=== PATIENT | female | born 1975 | race Caucasian/White ===

== ENCOUNTER → 2018-04-13 | Outpatient (CLI) | payer BC ==
[2018-04-13 07:39] LABS: Basophils # (auto) 0 uL; Basophils % (auto) 0.6 % (0.0-2.0); Eosinophils # (auto) 0.1 uL; Eosinophils % (auto) 1.9 % (0.0-7.0); Hematocrit 45.9 % (36.0-46.0); Hemoglobin 16.1 g/dL (12.2-16.2); Lymphocytes # (auto) 2.2 uL; Lymphocytes % (auto) 32.6 % (10.0-50.0); Mean Corpuscular Hemoglobin 29.3 pg (28.0-32.0); Mean Corpuscular Hgb Conc. 35.1 g/dL (32.0-36.0); Mean Corpuscular Volume 83.5 fL (80.0-100.0); Monocytes # (auto) 0.5 uL; Monocytes % (auto) 6.8 % (0.0-12.0); Neutrophils % (auto) 58.1 % (37.0-80.0); Nucleated Red Blood Cells % 0.3 %; Platelet Count (auto) 213 10^3/uL (140-450); Red Cell Distribution Width 13.3 % (11.8-14.3); White Blood Cell 6.9 10^3/uL (4.4-10.8)
[2018-04-13 07:57] LABS: Albumin 4.3 g/dL (3.4-5.0); BUN/Creatinine Ratio 11.4; Potassium 3.5 mmol/L (3.5-5.1)
[2018-04-13 08:03] LABS: Bilirubin, Total 1.4 mg/dL (0.2-1.0)
[2018-04-14 06:06] LABS: RPR Non Reactive (Non Reactive)
== END | disposition home or self-care (01) ==
LOC: LAB 07:12
PROVIDERS: ATTEND Physician Assistant
DX: Z20.2 Contact with and (suspected) exposure to infections with a predominantly sexual mode of transmission (principal); I12.9 Hypertensive chronic kidney disease with stage 1 through stage 4 chronic kidney disease, or unspecified chronic kidney disease; N18.3 Chronic kidney disease, stage 3 (moderate); E78.5 Hyperlipidemia, unspecified
CPT/HCPCS: 36415; 80053; 80061; 80074; 85025; 86592; 86703

== ENCOUNTER → 2019-12-21 | Outpatient (CLI) | payer OTHER | END | disposition home or self-care (01) | LOC: LAB 14:49 | PROVIDERS: ATTEND Nurse Practitioner Family | DX: Z20.828 Contact with and (suspected) exposure to other viral communicable diseases (principal) | CPT/HCPCS: C9803; U0003 ==

== ENCOUNTER → 2020-03-01 | Outpatient (CLI) | payer OTHER | END | disposition home or self-care (01) | LOC: LAB 09:11 | PROVIDERS: ATTEND Nurse Practitioner Family | DX: Z20.828 Contact with and (suspected) exposure to other viral communicable diseases (principal) | CPT/HCPCS: C9803; U0003 ==

== ENCOUNTER → 2020-04-23 | Outpatient (CLI) | payer BC, MEDICAID ==
[2020-04-23 09:30] LABS: Basophils # (auto) 0 10 ^3/uL (0-0.2); Basophils % (auto) 0.5 % (0.0-2.0); Eosinophils # (auto) 0.1 10 ^3/uL (0-0.8); Hematocrit 42.7 % (36.0-46.0); Hemoglobin 15.2 g/dL (12.2-16.2); Lymphocytes # (auto) 2.1 10 ^3/uL (0.4-5.4); Lymphocytes % (auto) 37.3 % (10.0-50.0); Mean Corpuscular Hemoglobin 29.8 pg (28.0-32.0); Mean Corpuscular Hgb Conc. 35.6 g/dL (32.0-36.0); Mean Corpuscular Volume 83.7 fL (80.0-100.0); Monocytes # (auto) 0.3 10 ^3/uL (0-1.3); Monocytes % (auto) 5.8 % (0.0-12.0); Neutrophils % (auto) 54.4 % (37.0-80.0); Nucleated Red Blood Cells % 0.2 %; Platelet Count (auto) 175 10^3/uL (140-450); White Blood Cell 5.6 10^3/uL (4.4-10.8)
[2020-04-23 10:17] LABS: Potassium 4.3 mmol/L (3.5-5.1)
[2020-04-23 10:32] LABS: Albumin 3.7 g/dL (3.4-5.0); BUN/Creatinine Ratio 18.8; Bilirubin, Total 0.5 mg/dL (0.2-1.0); Calcium 8.7 mg/dL (8.5-10.1); Total Protein 7.4 g/dL (6.4-8.2)
== END | disposition home or self-care (01) ==
LOC: LAB 08:58
PROVIDERS: ATTEND Physician Assistant
DX: I13.10 Hypertensive heart and chronic kidney disease without heart failure, with stage 1 through stage 4 chronic kidney disease, or unspecified chronic kidney disease (principal); N18.30 Chronic kidney disease, stage 3 unspecified; E78.5 Hyperlipidemia, unspecified; K58.9 Irritable bowel syndrome, unspecified
CPT/HCPCS: 36415; 80053; 80061; 85025

== ENCOUNTER 2020-12-21 12:03 | Day surgery (SDC) | payer BC, MEDICAID ==
[2020-12-18 15:21] LABS: Basophils # (auto) 0.1 10 ^3/uL (0-0.2); Basophils % (auto) 0.7 % (0.0-2.0); Eosinophils # (auto) 0.1 10 ^3/uL (0-0.8); Eosinophils % (auto) 1.6 % (0.0-7.0); Hematocrit 45.2 % (36.0-46.0); Hemoglobin 15.5 g/dL (12.2-16.2); Lymphocytes % (auto) 40.8 % (10.0-50.0); Mean Corpuscular Hemoglobin 28.4 pg (28.0-32.0); Mean Corpuscular Hgb Conc. 34.2 g/dL (32.0-36.0); Monocytes # (auto) 0.3 10 ^3/uL (0-1.3); Monocytes % (auto) 4.5 % (0.0-12.0); Neutrophils # (auto) 3.9 10 ^3/uL (1.6-8.6); Neutrophils % (auto) 52.4 % (37.0-80.0); Nucleated Red Blood Cells % 0.4 %; Red Blood Cells 5.45 10^6/uL (4.0-5.20); Red Cell Distribution Width 12.8 % (11.8-14.3); White Blood Cell 7.4 10^3/uL (4.4-10.8)
[2020-12-18 15:55] LABS: Albumin 4.1 g/dL (3.4-5.0); Calcium 8.9 mg/dL (8.5-10.1); Potassium 3.7 mmol/L (3.5-5.1)
[2020-12-18 16:00] LABS: BUN/Creatinine Ratio 12.8; Bilirubin, Total 0.8 mg/dL (0.2-1.0); Total Protein 7.4 g/dL (6.4-8.2)
[~2020-12-21] VITALS: Ht 167.6 cm; Wt 88.0 kg
[2020-12-21] MEDS: diphenhdrAMINE HCL 50 MG/1 ML VL ONE ×2 (14:25→14:28)
[2020-12-21] MEDS: fentaNYL CITRATE 100 MCG/2 ML VL ONE ×6 (14:25→14:41)
[2020-12-21] MEDS: MIDAZOLAM HCL 5 MG/ML-1ML VIAL ONE ×5 (14:25→14:41)
[2020-12-21 15:20] VITALS: BP 162/91
[2020-12-21] MEDS ORDERED: ONDANSETRON HCL 4 MG/2 ML VIAL ONE (15:28)
[2020-12-21] MEDS ORDERED: ONDANSETRON HCL 4 MG/2 ML VIAL IV ONE (15:30)
== END 2020-12-21 15:50 | disposition home or self-care (01) ==
LOC: GI 12:03
PROVIDERS: ATTEND Internal Medicine Gastroenterology
DX: R19.4 Change in bowel habit (principal); K63.5 Polyp of colon; K57.30 Diverticulosis of large intestine without perforation or abscess without bleeding; K63.89 Other specified diseases of intestine; I10 Essential (primary) hypertension; F41.9 Anxiety disorder, unspecified; Z98.51 Tubal ligation status; Z98.890 Other specified postprocedural states; Z79.899 Other long term (current) drug therapy; Z88.1 Allergy status to other antibiotic agents; Z88.2 Allergy status to sulfonamides; Z20.822 Contact with and (suspected) exposure to COVID-19; Z90.710 Acquired absence of both cervix and uterus
CPT/HCPCS: 36415; 45380; 80053; 85025; 88305; J1200; J2250; J2405; J3010; J7030; U0003; 99152

== ENCOUNTER → 2021-03-20 | Outpatient (CLI) | payer BC, MEDICAID ==
[2021-03-20 09:26] LABS: Basophils # (auto) 0 10 ^3/uL (0-0.2); Basophils % (auto) 0.8 % (0.0-2.0); Eosinophils # (auto) 0.1 10 ^3/uL (0-0.8); Eosinophils % (auto) 2.1 % (0.0-7.0); Hematocrit 43.3 % (36.0-46.0); Hemoglobin 15.1 g/dL (12.2-16.2); Lymphocytes % (auto) 32.9 % (10.0-50.0); Mean Corpuscular Hemoglobin 28.9 pg (28.0-32.0); Mean Corpuscular Hgb Conc. 34.9 g/dL (32.0-36.0); Mean Corpuscular Volume 82.8 fL (80.0-100.0); Monocytes # (auto) 0.3 10 ^3/uL (0-1.3); Monocytes % (auto) 5.1 % (0.0-12.0); Neutrophils # (auto) 3.6 10 ^3/uL (1.6-8.6); Neutrophils % (auto) 59.1 % (37.0-80.0); Nucleated Red Blood Cells % 0.1 %; Red Blood Cells 5.23 10^6/uL (4.0-5.20); Red Cell Distribution Width 13.2 % (11.8-14.3)
[2021-03-20 10:01] LABS: Albumin 4.1 g/dL (3.4-5.0); Calcium 9.1 mg/dL (8.5-10.1); Potassium 4.7 mmol/L (3.5-5.1)
[2021-03-20 10:08] LABS: BUN/Creatinine Ratio 16.7; Bilirubin, Total 0.6 mg/dL (0.2-1.0); Total Protein 7.2 g/dL (6.4-8.2)
== END | disposition home or self-care (01) ==
LOC: LAB 09:01
PROVIDERS: ATTEND Nurse Practitioner Family
DX: K58.0 Irritable bowel syndrome with diarrhea (principal); E78.1 Pure hyperglyceridemia; E66.9 Obesity, unspecified; I10 Essential (primary) hypertension; F41.8 Other specified anxiety disorders
CPT/HCPCS: 36415; 80053; 80061; 83036; 84443; 85025

== ENCOUNTER → 2021-04-08 | Outpatient (CLI) | payer BC, MEDICAID | END | disposition home or self-care (01) | LOC: XY 10:41 | PROVIDERS: ATTEND Internal Medicine | DX: I07.1 Rheumatic tricuspid insufficiency (principal); I05.0 Rheumatic mitral stenosis; I35.0 Nonrheumatic aortic (valve) stenosis; I27.20 Pulmonary hypertension, unspecified | CPT/HCPCS: 93306 ==

== ENCOUNTER → 2021-04-09 | Outpatient (CLI) | payer BC, MEDICAID ==
[~2021-04-09] VITALS: Ht 167.6 cm; Wt 90.7 kg
[~2021-04-09] MED LIST: ADENOSINE 76 MG in GIVE UN-DILUTED 0 ML IV STA
[2021-04-09 08:31] VITALS: BP 142/79
== END | disposition home or self-care (01) ==
LOC: XYW 07:54
PROVIDERS: ATTEND Internal Medicine
DX: F17.210 Nicotine dependence, cigarettes, uncomplicated (principal); R07.9 Chest pain, unspecified; I10 Essential (primary) hypertension; Z82.49 Family history of ischemic heart disease and other diseases of the circulatory system
CPT/HCPCS: 78452; 93017; A9500; J0153

== ENCOUNTER 2021-06-26 08:23 | Day surgery (SDC) | payer BC, MEDICAID ==
[2021-06-25 10:11] LABS: Basophils # (auto) 0.1 10 ^3/uL (0-0.2); Basophils % (auto) 0.8 % (0.0-2.0); Eosinophils # (auto) 0.1 10 ^3/uL (0-0.8); Eosinophils % (auto) 1.5 % (0.0-7.0); Hematocrit 40.4 % (36.0-46.0); Hemoglobin 14.4 g/dL (12.2-16.2); Lymphocytes # (auto) 2.3 10 ^3/uL (0.4-5.4); Lymphocytes % (auto) 34.2 % (10.0-50.0); Mean Corpuscular Hemoglobin 29.3 pg (28.0-32.0); Mean Corpuscular Hgb Conc. 35.7 g/dL (32.0-36.0); Mean Corpuscular Volume 82.2 fL (80.0-100.0); Monocytes # (auto) 0.2 10 ^3/uL (0-1.3); Monocytes % (auto) 3.4 % (0.0-12.0); Neutrophils # (auto) 4.1 10 ^3/uL (1.6-8.6); Neutrophils % (auto) 60.1 % (37.0-80.0); Nucleated Red Blood Cells % 0.3 %; Red Blood Cells 4.92 10^6/uL (4.0-5.20); Red Cell Distribution Width 12.8 % (11.8-14.3); White Blood Cell 6.9 10^3/uL (4.4-10.8)
[2021-06-25 10:30] LABS: INR 0.99 (0.9-1.15); Partial Thromboplastin Time 29.4 sec (23.6-33.0)
[2021-06-25 10:36] LABS: Potassium 4.4 mmol/L (3.5-5.1)
[2021-06-25 10:55] LABS: Albumin 3.9 g/dL (3.4-5.0); BUN/Creatinine Ratio 14.6; Bilirubin, Total 0.7 mg/dL (0.2-1.0); Calcium 8.7 mg/dL (8.5-10.1); Total Protein 7.4 g/dL (6.4-8.2)
[~2021-06-26] VITALS: Ht 167.6 cm; Wt 92.5 kg
[2021-06-26] MEDS ORDERED: LIDOCAINE 2%HCL (LOCAL ANESTH.) INJ 10ml MDV ONE (10:13)
[2021-06-26] MEDS ORDERED: IOHEXOL 350 MG/ML 100ML IJ ONE (10:13)
[2021-06-26] MEDS ORDERED: ANGIOMAX 250 MG VIAL IV ONE (10:17)
[2021-06-26] MEDS ORDERED: fentaNYL CITRATE 100 MCG/2 ML VL ONE (10:17)
[2021-06-26] MEDS ORDERED: MIDAZOLAM HCL 2MG/2ML 2ml VIAL (1mg/ml) ONE ×2 (10:17→10:58)
[2021-06-26] MEDS ORDERED: SODIUM CHL 0.9% 0 ML ONE (10:17)
== END 2021-06-26 13:43 | disposition home or self-care (01) ==
LOC: CATH 08:23
PROVIDERS: ATTEND Internal Medicine
DX: I27.20 Pulmonary hypertension, unspecified (principal); R06.02 Shortness of breath; J44.9 Chronic obstructive pulmonary disease, unspecified; I10 Essential (primary) hypertension; F17.210 Nicotine dependence, cigarettes, uncomplicated; Z88.5 Allergy status to narcotic agent; Z88.2 Allergy status to sulfonamides; Z88.8 Allergy status to other drugs, medicaments and biological substances; Z20.822 Contact with and (suspected) exposure to COVID-19
CPT/HCPCS: 36415; 80053; 85025; 85610; 85730; 93460; C1751; C1760; C1894; J1644; J2001; J2250; J3010; J7030; Q9967; U0003; 99152; 99153

== ENCOUNTER → 2022-01-17 | Outpatient (CLI) | payer BC, MEDICAID ==
[2022-01-17 09:09] LABS: Urine Bacteria FEW /hpf (None Seen); Urine Blood Negative /uL (Negative); Urine Specific Gravity 1.016 (1.001-1.035); Urine WBC 1 /hpf (0 - 5)
== END | disposition home or self-care (01) ==
LOC: LAB 08:08
PROVIDERS: ATTEND Urology
DX: N39.0 Urinary tract infection, site not specified (principal)
CPT/HCPCS: 81001; 87086

== ENCOUNTER 2022-04-08 11:15 | Emergency (ER) | payer BC, MEDICAID ==
[~2022-04-08] VITALS: Ht 165.1 cm; Wt 97.7 kg
[2022-04-08] MEDS ORDERED: GLUCAGON HYDROCHLORIDE (RDNA) 1 MG VIAL IM ONE (13:00)
[2022-04-08 16:05] LABS: Basophils # (auto) 0.1 10 ^3/uL (0-0.2); Basophils % (auto) 0.5 % (0.0-2.0); Eosinophils # (auto) 0.1 10 ^3/uL (0-0.8); Hematocrit 45.2 % (36.0-46.0); Hemoglobin 15.1 g/dL (12.2-16.2); Lymphocytes # (auto) 2.6 10 ^3/uL (0.4-5.4); Lymphocytes % (auto) 22.2 % (10.0-50.0); Mean Corpuscular Hemoglobin 28.3 pg (28.0-32.0); Mean Corpuscular Hgb Conc. 33.5 g/dL (32.0-36.0); Mean Corpuscular Volume 84.4 fL (80.0-100.0); Monocytes # (auto) 0.5 10 ^3/uL (0-1.3); Monocytes % (auto) 4.4 % (0.0-12.0); Neutrophils # (auto) 8.6 10 ^3/uL (1.6-8.6); Neutrophils % (auto) 71.9 % (37.0-80.0); Nucleated Red Blood Cells % 0.2 %; Red Blood Cells 5.36 10^6/uL (4.0-5.20); Red Cell Distribution Width 13.3 % (11.8-14.3)
[2022-04-08 16:24] LABS: Albumin 4.1 g/dL (3.4-5.0); Calcium 8.8 mg/dL (8.5-10.1); Potassium 3.4 mmol/L (3.5-5.1)
[2022-04-08 16:29] LABS: BUN/Creatinine Ratio 9.8; Bilirubin, Total 1.4 mg/dL (0.2-1.0); Total Protein 7.5 g/dL (6.4-8.2)
[2022-04-08] MEDS ORDERED: IOHEXOL 300 MG/ML 100ML BOTTLE IJ ONE (16:47)
[2022-04-08] MEDS ORDERED: MAALOX PLUS or MAALOX 30 ML PO ONE (17:00)
[2022-04-08] MEDS ORDERED: LIDOCAINE VISCOUS 2% 15ML UD PO ONE (17:00)
[2022-04-08] MEDS ORDERED: FAMOTIDINE (10MG/ML) 2ML VL IV ONE (17:00)
[2022-04-08] MEDS ORDERED: ONDANSETRON HCL 4 MG/2 ML VIAL IV ONE (17:00)
[2022-04-08 21:59] VITALS: BP 138/100
== END 2022-04-08 22:00 | disposition home or self-care (01) ==
LOC: ER 11:15
DX: T18.128A Food in esophagus causing other injury, initial encounter (principal); X58.XXXA Exposure to other specified factors, initial encounter; Y93.9 Activity, unspecified; Y92.89 Other specified places as the place of occurrence of the external cause; Y99.8 Other external cause status
CPT/HCPCS: 36415; 70491; 71260; 80053; 85025; 96372; 96374; 96375; 99285; J1610; J2405; J3490; Q9967

== ENCOUNTER → 2022-09-29 | Outpatient (CLI) | payer BC, MEDICAID ==
[2022-09-29 07:15] LABS: Basophils # (auto) 0.1 10 ^3/uL (0-0.2); Basophils % (auto) 0.9 % (0.0-2.0); Eosinophils # (auto) 0.1 10 ^3/uL (0-0.8); Eosinophils % (auto) 1.8 % (0.0-7.0); Hematocrit 43.8 % (36.0-46.0); Hemoglobin 15.2 g/dL (12.2-16.2); Lymphocytes # (auto) 2.5 10 ^3/uL (0.4-5.4); Lymphocytes % (auto) 35.1 % (10.0-50.0); Mean Corpuscular Hemoglobin 28.8 pg (28.0-32.0); Mean Corpuscular Hgb Conc. 34.6 g/dL (32.0-36.0); Mean Corpuscular Volume 83.3 fL (80.0-100.0); Monocytes # (auto) 0.4 10 ^3/uL (0-1.3); Monocytes % (auto) 5.5 % (0.0-12.0); Neutrophils % (auto) 56.7 % (37.0-80.0); Nucleated Red Blood Cells % 0.5 %; Red Blood Cells 5.26 10^6/uL (4.0-5.20); Red Cell Distribution Width 12.9 % (11.8-14.3); White Blood Cell 7.1 10^3/uL (4.4-10.8)
[2022-09-29 07:57] LABS: Alanine Aminotransferase 37 U/L (13-56); Albumin 3.7 g/dL (3.4-5.0); Anion Gap 2 (5-15); Aspartate Aminotransferase 14 U/L (15-37); Blood Urea Nitrogen 16 mg/dL (7-18); Calcium 8.7 mg/dL (8.5-10.1); Carbon Dioxide 28 mmol/L (21-32); Chloride 111 mmol/L (98-107); Glucose 105 mg/dL (74-106); Potassium 4.3 mmol/L (3.5-5.1); Sodium 141 mmol/L (136-145)
[2022-09-29 08:03] LABS: Alkaline Phosphatase 91 U/L (45-117); BUN/Creatinine Ratio 15.2 (10.0-20.0); Bilirubin, Total 0.5 mg/dL (0.2-1.0); Cholesterol 166 mg/dL (< 200); GFR African American 72 mL/min; GFR Non-African American 60 mL/min; HDL Cholesterol 26 mg/dL (40-59); Total Protein 7.3 g/dL (6.4-8.2); Triglycerides 444 mg/dL (< 150)
== END | disposition home or self-care (01) ==
LOC: LAB 07:02
PROVIDERS: ATTEND Nurse Practitioner Family
DX: Z00.01 Encounter for general adult medical examination with abnormal findings (principal); E03.9 Hypothyroidism, unspecified; E78.5 Hyperlipidemia, unspecified; E66.01 Morbid (severe) obesity due to excess calories
CPT/HCPCS: 36415; 80053; 80061; 82306; 84439; 84443; 85025; 86038; 86431

== ENCOUNTER 2023-01-14 11:35 | Emergency (ER) | payer BC, MEDICAID ==
[~2023-01-14] VITALS: Ht 167.6 cm; Wt 99.0 kg
[2023-01-14] MEDS ORDERED: cloNIDine HCL 0.1 MG TAB PO ONE (12:30)
[2023-01-14 13:45] LABS: Basophils # (auto) 0 10 ^3/uL (0-0.2); Basophils % (auto) 0.4 % (0.0-2.0); Eosinophils # (auto) 0.1 10 ^3/uL (0-0.8); Eosinophils % (auto) 2.3 % (0.0-7.0); Hematocrit 43.2 % (36.0-46.0); Hemoglobin 14.7 g/dL (12.2-16.2); Lymphocytes # (auto) 2.5 10 ^3/uL (0.4-5.4); Lymphocytes % (auto) 39.4 % (10.0-50.0); Mean Corpuscular Hemoglobin 28.5 pg (28.0-32.0); Mean Corpuscular Hgb Conc. 34.1 g/dL (32.0-36.0); Mean Corpuscular Volume 83.7 fL (80.0-100.0); Monocytes # (auto) 0.3 10 ^3/uL (0-1.3); Monocytes % (auto) 5.5 % (0.0-12.0); Neutrophils # (auto) 3.3 10 ^3/uL (1.6-8.6); Neutrophils % (auto) 52.4 % (37.0-80.0); Nucleated Red Blood Cells % 0.1 %; Red Blood Cells 5.17 10^6/uL (4.0-5.20); Red Cell Distribution Width 13.3 % (11.8-14.3); White Blood Cell 6.3 10^3/uL (4.4-10.8)
[2023-01-14 14:08] LABS: Alanine Aminotransferase 52 U/L (7-40); Albumin 4.7 g/dL (3.2-4.8); Alkaline Phosphatase 72 U/L (46-116); Anion Gap 6 (5-15); Aspartate Aminotransferase 33 U/L (13-40); BUN/Creatinine Ratio 17.2 (10.0-20.0); Blood Urea Nitrogen 17 mg/dL (9-23); Calcium 9.3 mg/dL (8.5-10.1); Carbon Dioxide 31 mmol/L (20-30); Chloride 103 mmol/L (98-107); Glucose 90 mg/dL (74-106); Sodium 140 mmol/L (136-145); Total Protein 6.9 g/dL (5.7-8.2)
[2023-01-14] MEDS ORDERED: DexAMETHasone SOD PHOS 10MG/1ML VIAL INJ IV ONE ×2 (16:15→20:15)
[2023-01-14] MEDS ORDERED: KETOROLAC TROMETH 60MG/2ML VIAL IV ONE (16:15)
[2023-01-14] MEDS ORDERED: HYDROcodone-ACET 5/325MG TAB PO ONE (16:15)
[2023-01-14 16:54] LABS: Urine Bacteria FEW /hpf (None Seen); Urine Blood Negative /uL (Negative); Urine Clarity Clear (Clear); Urine Color Colorless (Yellow); Urine Protein, UAD Negative (Negative); Urine Specific Gravity 1.015 (1.001-1.035); Urine Urobilinogen Normal (Negative); Urine WBC 2 /hpf (0 - 5)
[2023-01-14 16:57] LABS: Amphetamine Screen, Urine Neg (NEGATIVE); Barbiturate Scree,Urine Neg (NEGATIVE); Benzodiazephine Screen, Urine Neg (NEGATIVE); Cocaine Screen, Urine Neg (NEGATIVE); Opiate Scree,Urine Neg (NEGATIVE); Phencyclidine Screen, Urine Neg (NEGATIVE)
[2023-01-14 16:58] LABS: Cannabinoid Screen, Urine Pos (NEGATIVE)
[2023-01-14] MEDS ORDERED: PRED20TA2 PO ×3 (17:35→20:46)
[2023-01-14] MEDS: LABETALOL HCL 5 MG/ML 4ML SYRINGE IV ONE ×2 (18:02→19:53)
[2023-01-14 19:30] VITALS: PULSE 81; RESP 12; TEMP 98.4; O2SAT 97
[2023-01-14] MEDS ORDERED: KETOROLAC TROMETH 30 MG/ML 1ML VIAL IV ONE (20:15)
[2023-01-14 21:49] VITALS: BP 154/81; PULSE 73; RESP 14; O2SAT 97
== END 2023-01-14 22:00 | disposition home or self-care (01) ==
LOC: ER 11:35
DX: M54.12 Radiculopathy, cervical region (principal); M47.9 Spondylosis, unspecified; I10 Essential (primary) hypertension
CPT/HCPCS: 36415; 70450; 72125; 80053; 80307; 81001; 83605; 84484; 85025; 93005; 96374; 96375; 99285; J1100; J1885; J3490

== ENCOUNTER → 2023-01-14 | Outpatient (CLI) | payer BC, MEDICAID ==
[~2023-01-14] MED LIST changes: -ADENOSINE 76 MG in GIVE UN-DILUTED 0 ML IV STA; +PRED20TA2 PO
== END | disposition home or self-care (01) ==
LOC: LAB 10:08
DX: E03.9 Hypothyroidism, unspecified (principal)
CPT/HCPCS: 36415; 84439; 84443

== ENCOUNTER → 2023-12-01 | Outpatient (CLI) | payer BC ==
[2023-12-01 08:07] LABS: Basophils # (auto) 0 10 ^3/uL (0-0.2); Basophils % (auto) 0.4 % (0.0-2.0); Eosinophils # (auto) 0.2 10 ^3/uL (0-0.8); Eosinophils % (auto) 2.4 % (0.0-7.0); Hematocrit 42.6 % (36.0-46.0); Hemoglobin 14.9 g/dL (12.2-16.2); Lymphocytes # (auto) 2.4 10 ^3/uL (0.4-5.4); Lymphocytes % (auto) 37.6 % (10.0-50.0); Mean Corpuscular Hemoglobin 29.4 pg (28.0-32.0); Mean Corpuscular Hgb Conc. 34.9 g/dL (32.0-36.0); Mean Corpuscular Volume 84.4 fL (80.0-100.0); Monocytes # (auto) 0.4 10 ^3/uL (0-1.3); Neutrophils # (auto) 3.5 10 ^3/uL (1.6-8.6); Neutrophils % (auto) 53.6 % (37.0-80.0); Nucleated Red Blood Cells % 0.1 %; Platelet Count (auto) 241 10^3/uL (140-450); Red Blood Cells 5.05 10^6/uL (4.0-5.20); Red Cell Distribution Width 12.8 % (11.8-14.3); White Blood Cell 6.5 10^3/uL (4.4-10.8)
[2023-12-01 09:28] LABS: Alanine Aminotransferase 54 U/L (7-40); Albumin 4.9 g/dL (3.2-4.8); Alkaline Phosphatase 84 U/L (46-116); Anion Gap 8 (5-15); Aspartate Aminotransferase 31 U/L (13-40); BUN/Creatinine Ratio 15.4 (10.0-20.0); Bilirubin, Total 0.7 mg/dL (0.2-1.0); Blood Urea Nitrogen 16 mg/dL (9-23); Calcium 9.6 mg/dL (8.7-10.4); Carbon Dioxide 27 mmol/L (20-30); Chloride 105 mmol/L (98-107); Glucose 119 mg/dL (74-106); Potassium 4.3 mmol/L (3.5-5.1); Sodium 140 mmol/L (136-145); Total Protein 7.3 g/dL (5.7-8.2)
[2023-12-01 13:03] LABS: Triglycerides 276 mg/dL (< 150)
[2023-12-01 13:04] LABS: Cholesterol 184 mg/dL (< 200); LDL Cholesterol 104 mg/dL (< 100)
[2023-12-01 13:05] LABS: HDL Cholesterol 36 mg/dL (40-59)
== END | disposition home or self-care (01) ==
LOC: LAB 07:27
PROVIDERS: ATTEND Nurse Practitioner Family
DX: I10 Essential (primary) hypertension (principal); E78.1 Pure hyperglyceridemia; E66.01 Morbid (severe) obesity due to excess calories
CPT/HCPCS: 36415; 80053; 80061; 82306; 83036; 85025

== ENCOUNTER 2024-02-18 08:42 | Emergency (ER) | payer BC ==
[~2024-02-18] VITALS: Ht 165.1 cm; Wt 101.5 kg
[2024-02-18 09:04] VITALS: TEMP 99.2
--- NOTE | 2024-02-18 09:19 | ED.PDOC ---
History of Present Illness HPI Comments A 48 YEAR OLD FEMALE PRESENTS TO THE ED WITH COMPLAINT OF SINUS PRESSURE AND HIGH BLOOD PRESSURE. PATIENT STATES SHE HAS BEEN EXPERIENCING SINUS PRESSURE AND CONGESTION THAT STARTED YESTERDAY. PATIENT NOTES SHE HAS TRIED TAKING ALLERGY MEDICATION WITH NO IMPROVEMENT. PATIENT REPORTS HER BLOOD PRESSURE WAS HIGHER THAN NORMAL TODAY DESPITE TAKING HER MEDICATIONS, PROMPTING HER TO COME TO THE ED FOR EVALUATION. PATIENT DENIES VISION CHANGES, FEVER, CHILLS, SHORTNESS OF BREATH, CHEST PAIN, ABDOMINAL PAIN, NAUSEA, VOMITING, HEADACHE, OR OTHER COMPLAINTS. NO OTHER SYMPTOMS OR MODIFYING FACTORS AT THIS TIME. PATIENT IS ALERT, ORIENTED X 4, AND HAS STEADY GAIT. Chief Complaint: High Blood Pressure Time Seen by MD: 09:00 Primary Care Provider: Wenceslao POOLE Reviewed Notes: Nurses Notes, Medications, Allergies Allergies: Coded Allergies: Doxycycline (Verified Allergy, Intermediate, 06/25/21) Erythromycin (Verified Allergy, Intermediate, 06/25/21) Sulfa Antibiotics (Verified Allergy, Mild, hives, 06/25/21) Codeine (Verified Adverse Reaction, Intermediate, 06/25/21) Home Meds Active Scripts Prednisone (Prednisone) 20 Mg Tab, 40 MG PO DAILY for 5 Days, #10 MG Prov:LISETTE PELAYO 01/14/23 Information Source: Patient Mode of Arrival: Ambulatory Severity: Moderate Timing: Days Duration: Since onset, Days Prehospital treatment: None Medication Refill: For: Hypertension, For: Other (SINUS PRESSURE AND HIGH BLOOD PRESSURE) Past Medical History PAST MEDICAL HISTORY: HTN Surgical History: Hysterectomy, Tubal Ligation ROAD MONKEY History: No Pertinent ROAD MONKEY History Family History Family History: Reviewed,noncontributory to illness Social History Smoker: Cigarettes Alcohol: Denies ETOH Use Drugs: Denies Drug Use Lives In: Home Constitutional: denies: chills, diaphoresis, fatigue, fever, malaise, sweats, weakness, others EENTM: reports: nose congestion, others (SINUS PRESSURE); denies: blurred vision, double vision, ear bleeding, ear discharge, ear drainage, ear pain, ear ringing, eye pain, eye redness, hearing loss, mouth pain, mouth swelling, nasal discharge, nose bleeding, nose pain, photophobia, tearing, throat pain, throat swelling, voice changes Respiratory: denies: cough, hemoptysis, orthopnea, SOB at rest, shortness of breath, SOB with excertion, stridor, wheezing, others Cardiovascular: reports: others (HYPERTENSION); denies: chest pain, dizzy spells, diaphoresis, Dyspnea on exertion, edema, irregular heart beat, left arm pain, lightheadedness, palpitations, PND, syncope Gastrointestinal: denies: abdomen distended, abdominal pain, blood streaked bowels, constipated, diarrhea, dysphagia, difficulty swallowing, hematemesis, melena, nausea, poor appetite, poor fluid intake, rectal bleeding, rectal pain, vomiting, others Genitourinary: denies: abnormal vagina bleeding, burning, dyspareunia, dysuria, flank pain, frequency, hematuria, incontinence, pain, , vagina discharge, urgency, others Neurological: denies: dizziness, fainting, headache, left sided numbness, left sided weakness, numbness, paresthesia, pre-existing deficit, right sided numbness, right sided weakness, seizure, speech problems, tingling, tremors, weakness, others Musculoskeletal: denies: back pain, gout, joint pain, joint swelling, muscle pain, muscle stiffness, neck pain, others Integumetry: denies: bruises, change in color, change in hair/nails, dryness, laceration, lesions, lumps, rash, wounds, others Allergic/Immunocompromised: denies: Difficulty Healing, Frequent Infections, Hives, Itching, others Hematologic/Lymphatic: denies: anemia, blood clots, easy bleeding, easy bruising, swollen glands, others Endocrine: denies: excessive hunger, excessive sweating, excessive thirst, excessive urination, flushing, intolerance to cold, intolerance to heat, unexplained weight gain, unexplained weight loss, others Psychiatric: denies: anxiety, bipolar disorder, depression, hopeless, panic disorder, schizophrenia, sleepless, suicidal, others All Other Systems: Reviewed and Negative Physical Exam General Appearance: No Apparent Distress, Normal HEENT: Normal ENT Inspection, PERRL/EOMI, Pharynx Normal, TMs Normal, Other (TENDERNESS MAXILLARY SINUSES WITH POST NASAL DRIP. ) Neck: Full Range of Motion, Non-Tender, Normal, Normal Inspection Respiratory: Chest Non-Tender, Lungs Clear, No Accessory Muscle Use, No Respiratory Distress, Normal Breath Sounds Cardiovascular: No Edema, No JVD, No Murmur, No Gallop, Normal Peripheral Pulses, Regular Rate/Rhythm Breast Exam: Deferred Gastrointestinal: No Organomegaly, Non Tender, No Pulsatile Mass, Normal Bowel Sounds, Soft Genitalia: Deferred Pelvic: Deferred Rectal: Deferred Extremities: No calf tenderness, Normal capillary refill, Normal inspection, Normal range of motion, Non-tender, No pedal edema Musculoskeletal : Apperance: Normal Neurologic: Alert, community coordinator II-XII nml as Tested, No Motor Deficits, Normal Affect, Normal Mood, No Sensory Deficits Cerebellar Function: Normal Reflexes: Normal Skin: Dry, Normal Color, Warm Peripheral Pulses: 2+ carotid (R), 2+ carotid (L) Lymphatic: No Adenopathy Was a procedure done? Was a procedure done?: No Differential Dx Considerations may include: SINUSITIS, SINUS CONGESTION, HYPERTENSION, SEASONAL ALLERGIES, URI X-Ray, Labs, Meds, VS Vital Signs Date Time Temp Pulse Resp B/P (MAP) Pulse Ox O2 Delivery O2 Flow Rate FiO2 02/18/24 09:37 98 16 153/80 (104) 99 02/18/24 09:04 99.2 97 16 175/98 (123) 99 99.2 02/18/24 09:04 97 16 99 Room Air 02/18/24 08:56 99.2 97 16 175/98 (123) 99 02/18/24 08:55 75 Current Medications Medications (Trade) Dose Ordered Sig/Annetta Route Start Time Stop Time Status Last Admin Methylprednisolone Sodium Succinate (Solu Medrol) 125 mg ONCE ONCE IM 02/18/24 09:15 02/18/24 09:16 DC 02/18/24 09:21 X-Ray, Labs, Meds, VS Comment EXTERNAL NOTES: NONE LABS ORDERED: NONE REVIEWED AND INTERPRETED RESULTS: NONE IMAGING ORDERED: NONE PATIENT DECLINED TO HAVE ANY LABS OR IMAGING AT THIS TIME SHE STATES SHE DOES NOT THINK SHE NEEDS THEM AND STATES SHE WOULD PREFER TREATMENT ONLY HERE IN THE ED. INDEPENDENT HISTORIANS: NONE TREATMENTS ORDERED: SOLU-MEDROL 125MG IM PATIENT'S CASE AND RESULTS HAVE BEEN DISCUSSED WITH THE ED ATTENDING PHYSICIAN AND THEY AGREE WITH MY PLAN OF CARE. I HAVE INSTRUCTED THE PATIENT TO FOLLOW UP WITH THEIR PCP IN 1-2 DAYS. THE PATIENT FULLY UNDERSTANDS THEIR RESULTS AND ARE AWARE THEY NEED TO FOLLOW UP WITH THEIR PCP FOR FURTHER EVALUATION IF THEIR SYMPTOMS PERSIST. Time of 1ST Reevaluation: 10:00 Reevaluation 1ST: Improved Patient Education/Counseling: Diagnosis, Treatment, Need For Follow Up Family Education/Counseling: Diagnosis, Treatment, Need For Follow Up Medical Screening: No EMC Exist At This Time Departure 1 Departure Time of Disposition: 10:00 Impression: Primary Impression: Acute sinusitis Qualified Codes: J01.90 - Acute sinusitis, unspecified Additional Impression: HTN (hypertension) Qualified Codes: I10 - Essential (primary) hypertension Disposition: HOME / SELF CARE / HOMELESS Condition: Stable Additional Instructions: FOLLOW-UP WITH PCP IN 1 TO 2 DAYS. TAKE MEDICATIONS PRESCRIBED. RETURN TO ED FOR ANY NEW OR WORSENING SYMPTOMS. e-Prescriptions Prednisone (Prednisone) 20 Mg Tab 60 MG PO DAILY for 6 Days, #18 TAB Prov: NARESH ENAMORADO 02/18/24 Levofloxacin Hemihydrate (LEVAQUIN 500 MG) 500 Mg Tab 1 TAB PO DAILY, #10 TAB Prov: NARESH ENAMORADO 02/18/24 Discharged With: Self Critical Care Note Critical Care Time?: No Stability Stability form required: No I personally scribed for NARESH ENAMORADO ([email or web address]) on 02/18/24 at 09:19. Electronically submitted by Jean-Paul Pacheco ([email or web address]). I personally scribed for NARESH ENAMORADO ([email or web address]) on 02/18/24 at 09:24. Electronically submitted by Jean-Paul Pacheco ([email or web address]). NARESH ENAMORADO Feb 18, 2024 09:19
[2024-02-18] MEDS: methylPREDNISolone SOD SUCC 125 MG/2 ML VL IM ONE (09:21)
[2024-02-18 09:37] VITALS: BP 153/80; PULSE 98; RESP 16; O2SAT 99
[2024-02-18] MEDS ORDERED: PRED20TA2 PO (09:44)
[2024-02-18] MEDS ORDERED: LEVO500T91 PO (09:44)
--- NOTE | 2024-02-19 07:03 | ECG ---
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
== END 2024-02-18 09:52 | disposition home or self-care (01) ==
LOC: ER 08:42
DX: I10 Essential (primary) hypertension (principal); J01.90 Acute sinusitis, unspecified; F17.210 Nicotine dependence, cigarettes, uncomplicated; Z90.710 Acquired absence of both cervix and uterus; Z98.890 Other specified postprocedural states; Z88.1 Allergy status to other antibiotic agents; Z88.2 Allergy status to sulfonamides; Z88.5 Allergy status to narcotic agent; Z79.52 Long term (current) use of systemic steroids
CPT/HCPCS: 93005; 96372; 99283; J2919

== ENCOUNTER 2024-02-22 11:03 | Inpatient (IN) | payer BC ==
[~2024-02-22] VITALS: Ht 165.1 cm; Wt 105.2 kg
[~2024-02-22 11:03] MED LIST changes: +LEVO500T91 PO
--- NOTE | 2024-02-22 11:51 | ED.PDOC ---
History of Present Illness HPI Comments 48 year old female presents to the ED with chief complaint of facial swelling and hypertension. Patient reports that she had been experiencing generalized facial swelling and redness to her face and body since last 02/17, being seen in the ED for it that day. Patient relays that she was diagnosed with sinus infection due to pain to her sinuses with palpation, being prescribed Levaquin and Prednisone. Patient states her symptoms did not fully improve and her swelling worsened today with associated occipital headache, bilateral upper extremity redness and facial redness, and her BP also being elevated at work, noting it to be 199/114. Patient notes she normally takes Diltiazem and Losartan for HTN control and she had taken 40mg of Prednisone this morning. Patient denies any N/V, chest pain, SOB, cough, fever, chills, numbness, or weakness. Chief Complaint: High Blood Pressure Time Seen by MD: 11:40 Primary Care Provider: VIRGILIO Reviewed Notes: Nurses Notes, Medications, Allergies Allergies: Coded Allergies: Doxycycline (Verified Allergy, Intermediate, 06/25/21) Erythromycin (Verified Allergy, Intermediate, 06/25/21) Sulfa Antibiotics (Verified Allergy, Mild, hives, 06/25/21) Codeine (Verified Adverse Reaction, Intermediate, 06/25/21) Home Meds Active Scripts Prednisone (Prednisone) 20 Mg Tab, 60 MG PO DAILY for 6 Days, #18 TAB Prov:NARESH ENAMORADO 02/18/24 Levofloxacin Hemihydrate (LEVAQUIN 500 MG) 500 Mg Tab, 1 TAB PO DAILY, #10 TAB Prov:NARESH ENAMORADO 02/18/24 Prednisone (Prednisone) 20 Mg Tab, 40 MG PO DAILY for 5 Days, #10 MG Prov:LISETTE PELAYO DO 01/14/23 Information Source: Patient Mode of Arrival: Ambulatory Severity: Moderate Timing: Days Duration: Since onset Prehospital treatment: None Past Medical History PAST MEDICAL HISTORY: High Lipids, HTN Past Medical History (Other): IBS, Bipolar Surgical History: Hysterectomy, Tubal Ligation Surgical History (Other): Colonoscopy, Endoscopy, L/R Heart Catheter RAD TECHNOLOGIST History: No Pertinent RAD TECHNOLOGIST History Family History Family History: Reviewed,noncontributory to illness Social History Smoker: Other (Vapes) Alcohol: Denies ETOH Use Drugs: Denies Drug Use Lives In: Home Constitutional: denies: chills, diaphoresis, fatigue, fever, malaise, sweats, weakness, others EENTM: reports: others (Facial swelling); denies: blurred vision, double vision, ear bleeding, ear discharge, ear drainage, ear pain, ear ringing, eye pain, eye redness, hearing loss, mouth pain, mouth swelling, nasal discharge, nose bleeding, nose congestion, nose pain, photophobia, tearing, throat pain, throat swelling, voice changes Respiratory: denies: cough, hemoptysis, orthopnea, SOB at rest, shortness of breath, SOB with excertion, stridor, wheezing, others Cardiovascular: denies: chest pain, dizzy spells, diaphoresis, Dyspnea on exertion, edema, irregular heart beat, left arm pain, lightheadedness, palpitations, PND, syncope, others Gastrointestinal: denies: abdomen distended, abdominal pain, blood streaked bowels, constipated, diarrhea, dysphagia, difficulty swallowing, hematemesis, melena, nausea, poor appetite, poor fluid intake, rectal bleeding, rectal pain, vomiting, others Genitourinary: denies: abnormal vagina bleeding, burning, dyspareunia, dysuria, flank pain, frequency, hematuria, incontinence, pain, , vagina discharge, urgency, others Neurological: reports: headache; denies: dizziness, fainting, left sided numbness, left sided weakness, numbness, paresthesia, pre-existing deficit, right sided numbness, right sided weakness, seizure, speech problems, tingling, tremors, weakness, others Musculoskeletal: denies: back pain, gout, joint pain, joint swelling, muscle pain, muscle stiffness, neck pain, others Integumetry: reports: change in color (redness to skin); denies: bruises, change in hair/nails, dryness, laceration, lesions, lumps, rash, wounds, others Allergic/Immunocompromised: denies: Difficulty Healing, Frequent Infections, Hives, Itching, others Hematologic/Lymphatic: denies: anemia, blood clots, easy bleeding, easy bruising, swollen glands, others Endocrine: denies: excessive hunger, excessive sweating, excessive thirst, excessive urination, flushing, intolerance to cold, intolerance to heat, unexplained weight gain, unexplained weight loss, others Psychiatric: denies: anxiety, bipolar disorder, depression, hopeless, panic disorder, schizophrenia, sleepless, suicidal, others All Other Systems: Reviewed and Negative Physical Exam General Appearance: Mild Distress HEENT: Other (Mild generalized facial edema/erythema. No oropharyngeal edema.) Neck: Full Range of Motion, Normal Inspection Respiratory: Lungs Clear, No Accessory Muscle Use, No Respiratory Distress, Normal Breath Sounds Cardiovascular: No JVD, Regular Rate/Rhythm Breast Exam: Deferred Gastrointestinal: Non Tender, Soft Genitalia: Deferred Pelvic: Deferred Rectal: Deferred Extremities: Normal range of motion, Non-tender, No pedal edema, Other (Mild bilateral upper extremity erythema) Musculoskeletal : Apperance: Normal Neurologic: Alert (Oriented x4), Normal Affect, Normal Mood, Other (Ambulatory without difficulty. No gross focal deficit.) Cerebellar Function: NOT DONE Reflexes: NOT DONE Skin: Dry, Warm, Other (Mild generalized facial and bilateral upper extremity erythema) Lymphatic: NOT DONE Was a procedure done? Was a procedure done?: No Differential Dx Considerations may include: Allergic reaction, anaphylaxis, hypertensive urgency/emergency, CHF, renal failure, among others X-Ray, Labs, Meds, VS Vital Signs Date Time Temp Pulse Resp B/P (MAP) Pulse Ox O2 Delivery O2 Flow Rate FiO2 02/22/24 14:31 192/114 02/22/24 14:20 83 16 100 Room Air* 0 21 02/22/24 14:18 98.5 69 16 192/114 (140) 97 98.5 02/22/24 11:12 98.2 86 18 174/110 (131) 97 188/103 (131) Lab Test 02/22/24 14:30 02/22/24 13:36 02/22/24 11:30 Range/Units Urine Color Colorless Yellow Urine Clarity Clear Clear Urine pH 7.0 5.0-9.0 Urine Specific [place] 1.008 1.001-1.035 Urine Protein Negative Negative Urine Ketones Negative Negative Urine Blood Negative Negative /uL Urine Nitrite Negative Negative Urine Bilirubin Negative Negative Urine Urobilinogen Normal Negative mg/dL Urine Leukocyte Esterase Trace Negative /uL Urine RBC 2 0 - 4 /hpf Urine WBC 2 0 - 5 /hpf Urine Squamous Epithelial Cells None seen <5 /hpf Urine Bacteria None seen None Seen /hpf Urine Glucose Normal Normal mg/dL Troponin I High Sensitivity 5 3 L </=34 ng/L White Blood Count 12.5 H 4.4-10.8 10^3/uL Red Blood Count 4.89 4.0-5.20 10^6/uL Hemoglobin 13.9 12.2-16.2 g/dL Hematocrit 41.5 36.0-46.0 % Mean Corpuscular Volume 84.8 80.0-100.0 fL Mean Corpuscular Hemoglobin 28.5 28.0-32.0 pg Mean Corpuscular Hemoglobin Concent 33.6 32.0-36.0 g/dL Red Cell Distribution Width 13.3 11.8-14.3 % Platelet Count 247 140-450 10^3/uL Mean Platelet Volume 8.0 6.9-10.8 fL Neutrophils (%) (Auto) 37.0-80.0 % Lymphocytes (%) (Auto) 10.0-50.0 % Monocytes (%) (Auto) 0.0-12.0 % Basophils (%) (Auto) 0.0-2.0 % Neutrophils # (Auto) 1.6-8.6 10 ^3/uL Lymphocytes # (Auto) 0.4-5.4 10 ^3/uL Monocytes # (Auto) 0-1.3 10 ^3/uL Differential Total Cells Counted 100.0 100 Neutrophils % (Manual) 73 37.0-80.0 Band Neutrophils % (Manual) 0 Lymphocytes % (Manual) 14 10.0-50.0 Monocytes % (Manual) 12 0-12 Eosinophils % (Manual) 1 0-7 Basophils % (Manual) 0 0.0-2.0 Metamyelocytes % (manual) 0 Myelocytes % (Manual) 0 Promyelocytes % (Manual) 0 Blast Cells % (Manual) 0 Reactive Lymphocytes 0 Platelet Estimate Adequate Large Platelets Few Sodium Level 140 136-145 mmol/L Potassium Level 4.0 3.5-5.1 mmol/L Chloride Level 107 98-107 mmol/L Carbon Dioxide Level 28 20-31 mmol/L Anion Gap 5 5-15 Blood Urea Nitrogen 21 9-23 mg/dL Creatinine 1.04 H 0.550-1.02 mg/dL Glomerular Filtration Rate Calc 66 >90 mL/min BUN/Creatinine Ratio 20.2 H 10.0-20.0 Serum Glucose 168 H 74-106 mg/dL Calcium Level 9.9 8.7-10.4 mg/dL B-Type Natriuretic Peptide 124.50 0-100 pg/mL Current Medications Medications (Trade) Dose Ordered Sig/Annetta Route Start Time Stop Time Status Last Admin Acetaminophen (Tylenol Tablet) 1,000 mg ONCE ONCE PO 02/22/24 11:30 02/22/24 11:31 DC 02/22/24 14:32 Diphenhydramine HCl (Benadryl Injection) 50 mg ONCE ONCE IV 02/22/24 11:30 02/22/24 11:31 DC 02/22/24 14:32 Dexamethasone Sodium Phosphate (Decadron Injection) 10 mg ONCE ONCE IV 02/22/24 11:30 02/22/24 11:31 DC 02/22/24 14:32 Famotidine (Pepcid Injection) 20 mg ONCE ONCE IV 02/22/24 11:30 02/22/24 11:31 DC 02/22/24 14:32 Hydralazine HCl (Apresoline Injection) 10 mg ONCE ONCE IV 02/22/24 11:30 02/22/24 11:31 DC 02/22/24 14:31 Chest XR: FINDINGS: Lines and Tubes: None Lungs: No focal consolidation. Pleura: No effusion. No pneumothorax. Cardiomediastinal contours: Unremarkable Bones: No acute osseous abnormality. IMPRESSION: 1. No radiographic evidence of acute cardiopulmonary disease. X-Ray, Labs, Meds, VS Comment 48-year-old female with a history of hypertension, recently treated for a presumed sinusitis, now presenting with worsening facial swelling, facial redness, bilateral upper extremity redness and elevated blood pressure Vitals remarkable for BP 174/110 Exam remarkable for facial erythema and mild edema, bilateral upper extremity erythema Rhythm strip independently interpreted by me: Sinus rhythm, rate 86, no ectopy. Chest x-ray unremarkable CBC remarkable for WBC 12.5 (likely due to prednisone), BMP remarkable for creatinine 1.04, BNP 124.5, troponin negative x2, no other abnormalities of acute significance Patient treated with the following in the ED: Hydralazine 10 mg IV, Pepcid 20 mg IV, dexamethasone 10 mg IV, Benadryl 25 mg IV On re-evaluation, patient's blood pressure still elevated, however improving. Labetalol 10 mg IV was ordered. Other symptoms improving. Plan is to admit the patient for blood pressure control and ongoing treatment of a presumed allergic reaction unresponsive to outpatient treatment with prednisone. Images Reviewed?: Images reviewed and evaluated by me Time of 1ST Reevaluation: 12:40 Reevaluation 1ST: Unchanged Patient Education/Counseling: Diagnosis, Treatment Family Education/Counseling: No Family Present Departure 1 Departure Time of Disposition: 15:11 Impression: Primary Impression: Hypertensive urgency Additional Impression: Allergic reaction Qualified Codes: T78.40XD - Allergy, unspecified, subsequent encounter Disposition: 09 ADMITTED INPATIENT Admit to: Tele Condition: Guarded Critical Care Note Critical Care Time?: Yes (35 min-critical care time only) Critical care comment: Critical care time including multiple bedside re-evaluations, review of lab and imaging studies, and discussion of the case with the admitting provider. Patient is high risk for hemodynamic and/or respiratory decompensation. Stability Stability form required: No Heart Score Heart Score: Heart Score Response (Comments) Value History Moderate Suspicious 1 EKG Normal 0 Age 45-64 1 Risk Factors 1 or 2 risk factors 1 Troponin Normal limit 0 Total 3 I personally scribed for SHERRY ERNST MD ([email or web address]) on 02/22/24 at 11:51. Electronically submitted by Tad Ramirez ([email or web address]). I personally scribed for SHERRY ERNST MD ([email or web address]) on 02/22/24 at 12:44. Electronically submitted by Tad Ramirez ([email or web address]). SHERRY ERNST MD Feb 22, 2024 11:51
[2024-02-22 12:04] LABS: Chloride 107 mmol/L (98-107); Sodium 140 mmol/L (136-145)
[2024-02-22 12:05] LABS: Anion Gap 5 (5-15); Carbon Dioxide 28 mmol/L (20-31); Hematocrit 41.5 % (36.0-46.0); Hemoglobin 13.9 g/dL (12.2-16.2); Mean Corpuscular Hemoglobin 28.5 pg (28.0-32.0); Mean Corpuscular Hgb Conc. 33.6 g/dL (32.0-36.0); Mean Corpuscular Volume 84.8 fL (80.0-100.0); Platelet Count (auto) 247 10^3/uL (140-450); Red Blood Cells 4.89 10^6/uL (4.0-5.20); Red Cell Distribution Width 13.3 % (11.8-14.3); White Blood Cell 12.5 10^3/uL (4.4-10.8)
[2024-02-22 12:06] LABS: Band Neutrophils % (manual) 0; Basophils % (manual) 0 (0.0-2.0); Blast Cells 0; Calcium 9.9 mg/dL (8.7-10.4); Metamyelocytes % 0; Myelocytes % 0; Promyelocytes % 0; Reactive Lymphocytes 0
--- NOTE | 2024-02-22 12:07 | DVH ---
CHEST RADIOGRAPH Indication: high bp Technique: Single frontal view of the chest was obtained Comparison: None FINDINGS: Lines and Tubes: None Lungs: No focal consolidation. Pleura: No effusion. No pneumothorax. Cardiomediastinal contours: Unremarkable Bones: No acute osseous abnormality. IMPRESSION: 1. No radiographic evidence of acute cardiopulmonary disease. HS:Y
[2024-02-22 12:11] LABS: BUN/Creatinine Ratio 20.2 (10.0-20.0); Blood Urea Nitrogen 21 mg/dL (9-23)
[2024-02-22 12:13] LABS: Glucose 168 mg/dL (74-106)
[2024-02-22 12:25] LABS: Eosinophils % (manual) 1 (0-7); Large Platelets FEW; Lymphocytes % (manual) 14 (10.0-50.0); Monocytes % (manual) 12 (0-12); Platelet Estimate Adequate
[2024-02-22 14:20] VITALS: PULSE 83; RESP 16; O2SAT 100
[2024-02-22] MEDS: hydrALAZINE HCL 20 MG/ML VL IV ONE (14:31)
[2024-02-22] MEDS: ACETAMINOPHEN 500 MG TAB or CAP PO ONE (14:32)
[2024-02-22] MEDS: DexAMETHasone SOD PHOS 10MG/1ML VIAL INJ IV ONE (14:32)
[2024-02-22] MEDS: FAMOTIDINE (10MG/ML) 2ML VL IV ONE (14:32)
[2024-02-22] MEDS: diphenhdrAMINE HCL 50 MG/1 ML VL IV ONE (14:32)
[2024-02-22 14:46] LABS: Urine Bacteria None Seen /hpf (None Seen)
[2024-02-22 14:59] LABS: Urine Blood Negative /uL (Negative); Urine Clarity Clear (Clear); Urine Color Colorless (Yellow); Urine Protein, UAD Negative (Negative); Urine Specific Gravity 1.008 (1.001-1.035); Urine Urobilinogen Normal (Negative); Urine WBC 2 /hpf (0 - 5)
--- NOTE | 2024-02-22 16:38 | DVHHP2 ---
History of Present Illness Reason for Visit: Hypertensive urgency History of Present Illness The patient is a 48-year-old female with past medical history of hypertension, hypertriglyceridemia, and thyroid disease who presented to [facility] ED with complaint of facial swelling. Patient reports has been having elevated blood pressure, facial redness, seen in the ED recently with diagnoses of sinus infection and discharged home with prescribed Levaquin and prednisone. Patient reports symptoms progressively get worse with increased swellings, oc cipital headache, bilateral upper extremity redness, facial redness, getting worse that prompted this visit. Patient was seen and evaluated in the ED, laboratory data shows WBC 12.5, platelets 247, sodium 140, potassium 4.0, BUN 21, creatinine 1.04, glucose 168, BNP 120 450, troponin 5, blood pressure 192/114, rate 83, temperature 98.3 F, O2 saturation 99% on room air. Patient was started on IV hydralazine, please see medication orders section in the computer. On my assessment, patient denied chest pain, no headache, no dizziness, no diaphoresis, no shortness of breath, no nausea, no vomiting, no fever, no chills. Patient was admitted for further evaluation and medical management. Past Medical History High Lipids, HTN, IBS, Bipolar, hypertriglyceridemia Past Surgical History Hysterectomy, Tubal Ligation, Colonoscopy, Endoscopy, L/R Heart Catheter Family History Reviewed, noncontributory to the management of this case. Past Social History The patient lives at home, smokes vapes, denies alcohol or illicit drugs abuse Review of Systems Constitutional: No: Fever, Chills, Sweats, Weakness, Malaise, Other Eyes: Other (Facial swelling); No: Pain, Vision change, Conjunctivae inflammation, Eyelid inflammation, Redness ENT: No: Ear pain, Ear discharge, Nose pain, Nose discharge, Nose congestion, Mouth pain, Mouth swelling, Throat pain, Throat swelling, Other Respiratory: No: Cough, Dry, Shortness of breath, SOB with excertion, Wheezing, Hemoptysis, Pleuritic Pain, Sputum, Wheezing, Other Cardiovascular: No: Chest Pain, Palpitations, Orthopnea, Paroxysmal Noc. Dyspnea, Edema, Lt Headedness, Other Gastrointestinal: No: Nausea, Vomiting, Abdominal Pain, Diarrhea, Constipation, Melena, Hematochezia, Other Genitourinary: No Dysuria, No Frequency, No Incontinence, No Hematuria, No Retention, No Other Musculoskeletal: No: other, neck pain, shoulder pain, arm pain, back pain, hand pain, leg pain, foot pain Skin: Other (Skin redness); No: Rash, Lesions, Jaundice, Bruising Neurological: Other (Headache); No: Weakness, Numbness, Incoordination, Change in speech, Confusion, Seizures Allergies: Coded Allergies: Doxycycline (Verified Allergy, Intermediate, 06/25/21) Erythromycin (Verified Allergy, Intermediate, 06/25/21) Sulfa Antibiotics (Verified Allergy, Mild, hives, 06/25/21) Codeine (Verified Adverse Reaction, Intermediate, 06/25/21) Medications Current Medications Medications Dose Ordered Sig/Annetta Route Start Time Stop Time Status Last Admin Dose Admin Losartan Potassium 25 mg DAILY PO 02/23/24 10:00 Hydralazine HCl 10 mg Q6HP PRN IV 02/22/24 15:15 Amlodipine Besylate 5 mg DAILY PO 02/23/24 10:00 Levothyroxine Sodium 25 mcg QAM@0600 PO 02/23/24 06:00 Famotidine 20 mg DAILY IV 02/23/24 10:00 Gemfibrozil 600 mg DAILY PO 02/23/24 10:00 Sodium Chloride 10 ml Q8HR IV 02/22/24 22:00 Ondansetron HCl 4 mg Q4HP PRN IV 02/22/24 15:15 Docusate Sodium 100 mg BIDPRN PRN PO 02/22/24 15:15 Acetaminophen 650 mg Q6HP PRN PO 02/22/24 15:15 Exam Vital Signs Vital Signs Date Time Temp Pulse Resp B/P (MAP) Pulse Ox O2 Delivery O2 Flow Rate FiO2 02/22/24 14:31 192/114 02/22/24 14:20 83 16 100 Room Air* 0 21 02/22/24 14:18 98.5 98.5 General Appearance: Alert, Oriented X3, Cooperative, No acute distress HEENT: Atraumatic, PERRLA, EOMI, Mucous membr. moist/pink Respiratory: Clear to auscultation, Normal air movement Cardiovascular: Regular rate, Normal S1, Normal S2, No murmurs Abdominal: Normal bowel sounds, Soft, No tenderness, No hepatospenomegaly, No masses Extremities: No clubbing, No cyanosis, No edema, Normal pulses, Other (Extremity swelling) Skin: No rashes, No breakdown, No significant lesion Neuro: Normal gait, Normal speech, Strength at 5/5 X4 ext, Normal tone, Sensation intact, Cranial nerves 3-12 NL, Reflexes 2+ Psych/Mental Status: Mental status NL, Mood NL Labs/Xrays Labs Test 02/22/24 16:00 02/22/24 14:30 02/22/24 11:30 Range/Units Troponin I High Sensitivity 6 </=34 ng/L Urine Color Colorless Yellow Urine Clarity Clear Clear Urine pH 7.0 5.0-9.0 Urine Specific [place] 1.008 1.001-1.035 Urine Protein Negative Negative Urine Ketones Negative Negative Urine Blood Negative Negative /uL Urine Nitrite Negative Negative Urine Bilirubin Negative Negative Urine Urobilinogen Normal Negative mg/dL Urine Leukocyte Esterase Trace Negative /uL Urine RBC 2 0 - 4 /hpf Urine WBC 2 0 - 5 /hpf Urine Squamous Epithelial Cells None seen <5 /hpf Urine Bacteria None seen None Seen /hpf Urine Glucose Normal Normal mg/dL White Blood Count 12.5 H 4.4-10.8 10^3/uL Red Blood Count 4.89 4.0-5.20 10^6/uL Hemoglobin 13.9 12.2-16.2 g/dL Hematocrit 41.5 36.0-46.0 % Mean Corpuscular Volume 84.8 80.0-100.0 fL Mean Corpuscular Hemoglobin 28.5 28.0-32.0 pg Mean Corpuscular Hemoglobin Concent 33.6 32.0-36.0 g/dL Red Cell Distribution Width 13.3 11.8-14.3 % Platelet Count 247 140-450 10^3/uL Mean Platelet Volume 8.0 6.9-10.8 fL Neutrophils (%) (Auto) 37.0-80.0 % Lymphocytes (%) (Auto) 10.0-50.0 % Monocytes (%) (Auto) 0.0-12.0 % Basophils (%) (Auto) 0.0-2.0 % Neutrophils # (Auto) 1.6-8.6 10 ^3/uL Lymphocytes # (Auto) 0.4-5.4 10 ^3/uL Monocytes # (Auto) 0-1.3 10 ^3/uL Differential Total Cells Counted 100.0 100 Neutrophils % (Manual) 73 37.0-80.0 Band Neutrophils % (Manual) 0 Lymphocytes % (Manual) 14 10.0-50.0 Monocytes % (Manual) 12 0-12 Eosinophils % (Manual) 1 0-7 Basophils % (Manual) 0 0.0-2.0 Metamyelocytes % (manual) 0 Myelocytes % (Manual) 0 Promyelocytes % (Manual) 0 Blast Cells % (Manual) 0 Reactive Lymphocytes 0 Platelet Estimate Adequate Large Platelets Few Sodium Level 140 136-145 mmol/L Potassium Level 4.0 3.5-5.1 mmol/L Chloride Level 107 98-107 mmol/L Carbon Dioxide Level 28 20-31 mmol/L Anion Gap 5 5-15 Blood Urea Nitrogen 21 9-23 mg/dL Creatinine 1.04 H 0.550-1.02 mg/dL Glomerular Filtration Rate Calc 66 >90 mL/min BUN/Creatinine Ratio 20.2 H 10.0-20.0 Serum Glucose 168 H 74-106 mg/dL Hemoglobin A1c 5.7 <5.7 % A1C Calcium Level 9.9 8.7-10.4 mg/dL B-Type Natriuretic Peptide 124.50 0-100 pg/mL Thyroid Stimulating Hormone (TSH) 5.40 H 0.55-4.78 uIU/mL PATIENT: NÉSTOR SEPULVEDA ACCT: [id number] UNIT: [id number] : 1975 LOC: ER ROOM / BED: / AGE / SEX: 48 / F ADM STATUS: REG ER SERVICE 1122 ORDERING PHYSICIAN: SHERRY ERNST MD PROCEDURE(s): CXR1 - CHEST XRAY 1 VIEW REASON: high bp ORDER NUMBER(s): [id number], ACCESSION NUMBER(s): [id number] CHEST RADIOGRAPH Indication: high bp Technique: Single frontal view of the chest was obtained Comparison: None FINDINGS: Lines and Tubes: None Lungs: No focal consolidation. Pleura: No effusion. No pneumothorax. Cardiomediastinal contours: Unremarkable Bones: No acute osseous abnormality. IMPRESSION: 1. No radiographic evidence of acute cardiopulmonary disease. Assessment/Plan Assessment/Plan Hypertensive urgency Allergic reaction Allergy, unspecified, subsequent encounter Leukocytosis, unspecified Plan 1. Admit to telemetry unit 2. Breathing treatment 3. Pain control management 4. IV antibiotic management 5. Management of fluids and electrolytes 6. Consultation for hospitalist 7. Diagnostic test chest x-ray 8. DVT prophylaxis-on SCDs 9. Repeat labs CBC, CMP in a.m. 10. Home medication reviewed and reconciled 11. Continue with current medical management 12. Treatment plan discussed with patient and RN. Patient verbalized understanding. Plan discussed with: Patient, Other (RN) My Orders Orders - CRISTAL MANRIQUEZ DNP Procedure Category Date Status Time Losartan Tablet PHA 02/23/24 In Process (Cozaar Tablet) 10:00 Hydralazine Injection PHA 02/22/24 In Process (Apresoline Inject 15:15 Amlodipine Tablet PHA 02/23/24 In Process (Norvasc Tablet) 10:00 Levothyroxine Tablet PHA 02/23/24 In Process (Synthroid Tablet) 06:00 Famotidine Injection PHA 02/23/24 In Process (Pepcid Injection) 10:00 Gemfibrozil Tablet PHA 02/23/24 In Process (Lopid Tablet) 10:00 Allergies HUNTER 02/22/24 In Process 15:14 Code Status CODE 02/22/24 Transmitted 15:14 Sodium Chloride Lock PHA 02/22/24 In Process (Saline Lock Ns) 22:00 Oxygen Per Hour RT 02/22/24 Transmitted 15:14 Ondansetron Hcl PHA 02/22/24 In Process (Zofran) 15:15 Docusate Sodium PHA 02/22/24 In Process Capsule (Colace 15:15 Complete Blood Count LAB 02/23/24 Verified 04:00 Comprehensive LAB 02/23/24 Verified Metabolic Panel 04:00 Cardiac DIET 02/22/24 Transmitted Diet-2gna,Lofat,Lochol Dinner Condition: Serious HUNTER 02/22/24 In Process 15:14 Acetaminophen Tablet PHA 02/22/24 In Process (Tylenol Tablet) 15:15 Bedrest With Bathroom HUNTER 02/22/24 In Process Privileg 15:14 Sequential HUNTER 02/22/24 In Process Compression Device Admit ADMIT 02/22/24 Verified 16:36 Nitroglycerin PHA 02/22/24 Verified Sublingual (Ntrostat 16:45 Morphine Sulfate PHA 02/22/24 Verified Injection 16:45 Notify Of Changes HUNTER 02/22/24 Verified From Base 16:36 Zinc Plate Cutter For [facility] 12/9/24 Verified 24 Hours 16:36 Emergency Dysrhythmia HUNTER 02/22/24 Verified Protocol 16:36 Rhythm Strips Once HUNTER 02/22/24 Verified Every Shift 16:36 Oxygen By Nasal RT 02/22/24 Verified Cannula 16:36 Problem List: (1) Hypertensive urgency (2) Leukocytosis, unspecified (3) Allergic reaction (4) Allergy, unspecified, subsequent encounter Date of Service: Feb 22, 2024 Billing Provider: CRISTAL MANRIQUEZ DNP Common Visit Codes: [id number] INP/OBS CARE (HIGH) CRISTAL MANRIQUEZ DNP Feb 22, 2024 16:38
[2024-02-22] MEDS ORDERED: NITROGLYCERIN 0.4 MG SL TAB SL PRN (16:45)
[2024-02-22] MEDS ORDERED: MORPHINE SULFATE INJ 2 MG/ml SYRG IV PRN (16:45)
[2024-02-22] MEDS: LABETALOL HCL 20 MG/4 ML VL IV ONE (17:12)
[2024-02-22] MEDS: cefTRIAXone 1GM/50ML D5W 50 ML IV ONE (18:47)
[2024-02-22] MEDS: ONDANSETRON HCL 4 MG/2 ML VIAL IV PRN (18:48)
[2024-02-22] MEDS: ACETAMINOPHEN 325 MG TAB PO PRN (18:48)
[2024-02-22] MEDS: amLODIPine BESYLATE 5 MG TAB PO ONE (18:48)
[2024-02-22] MEDS: hydrALAZINE HCL 20 MG/ML VL IV PRN (19:56)
[2024-02-22 20:30] VITALS: BP 140/77; PULSE 82; RESP 20; TEMP 98; O2SAT 95
[2024-02-22] MEDS: SODIUM CHLOR 0.9% PF (SALINE LOCK) 10ML VIAL/SYR IV SCH (21:50)
[2024-02-23] VITALS (10 sets, daily range): BP systolic 127–174; BP diastolic 72–98; PULSE 57–86; RESP 16–20; TEMP 97.8–98.2; O2SAT 95–99
[2024-02-23] MEDS ORDERED: LOSA-533 PO (03:58)
[2024-02-23] MEDS ORDERED: OMEP20TA PO (03:59)
[2024-02-23] MEDS ORDERED: DILT-29 PO (03:59)
[2024-02-23] MEDS ORDERED: LEVO-848 PO (04:00)
[2024-02-23] MEDS ORDERED: LEVO25TA6 PO (04:00)
[2024-02-23 05:18] LABS: Hematocrit 43.2 % (36.0-46.0); Hemoglobin 14.4 g/dL (12.2-16.2); Mean Corpuscular Hemoglobin 28.7 pg (28.0-32.0); Mean Corpuscular Hgb Conc. 33.4 g/dL (32.0-36.0); Mean Corpuscular Volume 85.8 fL (80.0-100.0); Platelet Count (auto) 281 10^3/uL (140-450); Red Blood Cells 5.03 10^6/uL (4.0-5.20); Red Cell Distribution Width 13.9 % (11.8-14.3); White Blood Cell 14.3 10^3/uL (4.4-10.8)
[2024-02-23 05:34] LABS: Basophils % (manual) 0 (0.0-2.0); Blast Cells 0; Eosinophils % (manual) 0 (0-7); Metamyelocytes % 0; Myelocytes % 0; Promyelocytes % 0; Reactive Lymphocytes 0
[2024-02-23 05:35] LABS: Alkaline Phosphatase 81 U/L (46-116); Anion Gap 7 (5-15); Aspartate Aminotransferase 13 U/L (13-40); BUN/Creatinine Ratio 15.5 (10.0-20.0); Blood Urea Nitrogen 17 mg/dL (9-23); Calcium 10.3 mg/dL (8.7-10.4); Carbon Dioxide 29 mmol/L (20-31); Chloride 105 mmol/L (98-107); Potassium 3.9 mmol/L (3.5-5.1); Sodium 141 mmol/L (136-145)
[2024-02-23 05:36] LABS: Bilirubin, Total 0.8 mg/dL (0.2-1.0); Total Protein 7.5 g/dL (5.7-8.2)
[2024-02-23 05:51] LABS: Alanine Aminotransferase 81 U/L (7-40); Glucose 138 mg/dL (74-106)
[2024-02-23] MEDS: LEVOTHYROXINE SODIUM 25 MCG TAB PO SCH (05:52)
[2024-02-23] MEDS: GEMFIBROZIL 600 MG TAB PO SCH (08:40)
[2024-02-23] MEDS: LOSARTAN POTASSIUM 25 MG TAB PO SCH (08:40)
[2024-02-23] MEDS: amLODIPine BESYLATE 5 MG TAB PO SCH (08:41)
[2024-02-23 08:51] LABS: Band Neutrophils % (manual) 3; Lymphocytes % (manual) 18 (10.0-50.0); Monocytes % (manual) 7 (0-12); Platelet Estimate Adequate
[2024-02-23] MEDS: cefTRIAXone 1GM/50ML D5W 50 ML IV SCH (09:38)
[2024-02-23] MEDS: DexAMETHasone SOD PHOS 10MG/1ML VIAL INJ IV SCH (09:38)
[2024-02-23] MEDS ORDERED: FAMOTIDINE (10MG/ML) 2ML VL IV SCH (10:00)
[2024-02-23] MEDS: FAMOTIDINE (10MG/ML) 2ML VL IV SCH (10:17)
[2024-02-23] MEDS: cloNIDine HCL 0.1 MG TAB PO PRN (16:07)
--- NOTE | 2024-02-23 19:10 | DVHINCON2 ---
Date Seen: Feb 23, [address] Moore Reason for Consultation Atypical chest pain and shortness of breath History of Present Illness With previous cardiac catheterization by me two years ago developed facial swelling with an associated history of hypertension. Echocardiogram reviewed showing normal LV function. She does have a history of sinus infection. She was seen in the emergency room and placed on antibiotics. She does have a history of hypertension. Past Medical History Her past medical history significant for IBS. Bipolar disorder hyperlipidemia and hypertension. Past Surgical History Past history of endoscopy hysterectomy tubal ligation. Right and left heart catheterization. Family History: Osteoporosis G8 MOTHER Allergies: Coded Allergies: Garlic (Verified Allergy, Severe, Diarrhea (powder type okay), 02/23/24) Lactose Intolerance (GI) (Verified Allergy, Severe, diarrhea , 02/23/24) Onion (Verified Allergy, Severe, Diarrhea (Powder type is okay), 02/23/24) [place]ra (Verified Allergy, Severe, anaphalactic (tongue and lips swells) , 02/23/24) Doxycycline (Verified Allergy, Intermediate, 06/25/21) Erythromycin (Verified Allergy, Intermediate, 06/25/21) Sulfa Antibiotics (Verified Allergy, Mild, hives, 06/25/21) Codeine (Verified Adverse Reaction, Intermediate, 06/25/21) Home Meds Reported Medications Levothyroxine Sodium (Levothyroxine Sodium) 25 Mcg Tab, 1 TAB PO DAILY, #30 TAB 5 Refills 02/23/24 Levothyroxine Sodium (SYNTHROID TABLET) 50 Mcg Tb, 1 TAB PO DAILY, #30 TAB 5 Refills 02/23/24 Diltiazem Hcl (DILTIAZEM HCL ER) 240 Mg Cap, 1 CAP PO DAILY, #30 CAP 5 Refills 02/23/24 Omeprazole (Gnp Omeprazole) 20 Mg Tab, 1 TAB PO DAILY, #90 TAB 1 Refill 02/23/24 Losartan Potassium (Losartan Potassium) 25 Mg Tab, 1 TAB PO DAILY, #90 TAB 1 Refill 02/23/24 Current Medications Current Medications Medications (Trade) Dose Ordered Sig/Annetta Route PRN Reason Start Time Stop Time Status Last Admin Losartan Potassium (Cozaar Tablet) 25 mg DAILY PO 02/23/24 10:00 02/23/24 08:40 Amlodipine Besylate (Norvasc Tablet) 5 mg DAILY PO 02/23/24 10:00 02/23/24 08:41 Levothyroxine Sodium (Synthroid Tablet) 25 mcg QAM@0600 PO 02/23/24 06:00 02/23/24 05:52 Famotidine (Pepcid Injection) 20 mg DAILY IV 02/23/24 10:00 02/22/24 18:00 DC Gemfibrozil (Lopid Tablet) 600 mg DAILY PO 02/23/24 10:00 02/23/24 08:40 Sodium Chloride (Saline Lock Ns) 10 ml Q8HR IV 02/22/24 22:00 02/23/24 14:00 Ceftriaxone Sodium 50 ml @ 100 mls/hr DAILY@09 IV 02/23/24 09:00 02/23/24 09:38 Dexamethasone Sodium Phosphate (Decadron Injection) 6 mg DAILY IV 02/23/24 10:00 02/23/24 09:38 Famotidine (Pepcid Injection) 20 mg DAILY IV 02/23/24 10:00 02/23/24 10:17 Clonidine HCl (Catapres Tablet) 0.1 mg Q4HP PRN PO SBP>160 02/23/24 13:45 02/23/24 16:07 Review of Systems No constitutional symptoms of fevers chills or weight loss. Cardiac and respiratory as noted above. GI musculoskeletal endocrine hematologic oncologic and dermatologic otherwise negative with the exception of that noted above. Vital Signs Vital Signs Date Time Temp Pulse Resp B/P (MAP) Pulse Ox O2 Delivery O2 Flow Rate FiO2 02/23/24 17:10 139/84 02/23/24 16:27 98.1 86 20 99 98.1 02/23/24 08:00 Room Air* 0 21 Physical Exam She is awake alert and oriented. Vital signs is noted. HEENT examination reveals slight facial swelling. Already well hydrated. Trachea central neck is supple thyroid is not palpable there is no jugular distention no bruits. Lungs reveal good air entry no rales or rhonchi. Heart exam reveals regular S1-S2 soft S4. abdominal examination is unremarkable. Extremities reveal adequate perfusion without clubbing cyanosis no edema. Neurologically intact. Integumentary is otherwise within normal limits. Labs/Diagnostic Data EKG shows sinus rhythm nonspecific changes. .Labs Test 02/23/24 04:40 02/22/24 16:00 02/22/24 14:30 02/22/24 11:30 Range/Units White Blood Count 14.3 H 4.4-10.8 10^3/uL Red Blood Count 5.03 4.0-5.20 10^6/uL Hemoglobin 14.4 12.2-16.2 g/dL Hematocrit 43.2 36.0-46.0 % Mean Corpuscular Volume 85.8 80.0-100.0 fL Mean Corpuscular Hemoglobin 28.7 28.0-32.0 pg Mean Corpuscular Hemoglobin Concent 33.4 32.0-36.0 g/dL Red Cell Distribution Width 13.9 11.8-14.3 % Platelet Count 281 140-450 10^3/uL Mean Platelet Volume 8.0 6.9-10.8 fL Neutrophils (%) (Auto) 37.0-80.0 % Lymphocytes (%) (Auto) 10.0-50.0 % Monocytes (%) (Auto) 0.0-12.0 % Basophils (%) (Auto) 0.0-2.0 % Neutrophils # (Auto) 1.6-8.6 10 ^3/uL Lymphocytes # (Auto) 0.4-5.4 10 ^3/uL Monocytes # (Auto) 0-1.3 10 ^3/uL Differential Total Cells Counted 100.0 100 Neutrophils % (Manual) 72 37.0-80.0 Band Neutrophils % (Manual) 3 Lymphocytes % (Manual) 18 10.0-50.0 Monocytes % (Manual) 7 0-12 Eosinophils % (Manual) 0 0-7 Basophils % (Manual) 0 0.0-2.0 Metamyelocytes % (manual) 0 Myelocytes % (Manual) 0 Promyelocytes % (Manual) 0 Blast Cells % (Manual) 0 Reactive Lymphocytes 0 Platelet Estimate Adequate Sodium Level 141 136-145 mmol/L Potassium Level 3.9 3.5-5.1 mmol/L Chloride Level 105 98-107 mmol/L Carbon Dioxide Level 29 20-31 mmol/L Anion Gap 7 5-15 Blood Urea Nitrogen 17 9-23 mg/dL Creatinine 1.10 H 0.550-1.02 mg/dL Glomerular Filtration Rate Calc 62 >90 mL/min BUN/Creatinine Ratio 15.5 10.0-20.0 Serum Glucose 138 H 74-106 mg/dL Calcium Level 10.3 8.7-10.4 mg/dL Total Bilirubin 0.8 0.2-1.0 mg/dL Aspartate Amino Transferase (AST) 13 13-40 U/L Alanine Aminotransferase (ALT) 81 H 7-40 U/L Alkaline Phosphatase 81 46-116 U/L Total Protein 7.5 5.7-8.2 g/dL Albumin 5.0 H 3.2-4.8 g/dL Troponin I High Sensitivity 6 </=34 ng/L Urine Color Colorless Yellow Urine Clarity Clear Clear Urine pH 7.0 5.0-9.0 Urine Specific [place] 1.008 1.001-1.035 Urine Protein Negative Negative Urine Ketones Negative Negative Urine Blood Negative Negative /uL Urine Nitrite Negative Negative Urine Bilirubin Negative Negative Urine Urobilinogen Normal Negative mg/dL Urine Leukocyte Esterase Trace Negative /uL Urine RBC 2 0 - 4 /hpf Urine WBC 2 0 - 5 /hpf Urine Squamous Epithelial Cells None seen <5 /hpf Urine Bacteria None seen None Seen /hpf Urine Glucose Normal Normal mg/dL Large Platelets Few Hemoglobin A1c 5.7 <5.7 % A1C B-Type Natriuretic Peptide 124.50 0-100 pg/mL Thyroid Stimulating Hormone (TSH) 5.40 H 0.55-4.78 uIU/mL Assessment Allergic reaction. Mild swelling and edema. No history of coronary artery disease chest pain angina. History of negative cardiac catheterization. No significant CAD. Plan/Recommendation We will continue conservative medical management. Given normal echocardiogram no further cardiac testing needed at this time. Continue anti allergy medication. Plan discussed with: Patient Date of Service: Feb 23, 2024 Billing Provider: KYUNG EM Sr., MD Cardiology Common Codes: [id number] INP/OBS CARE (High) KYUNG EM Sr., MD Feb 23, 2024 19:10
[2024-02-24] VITALS (8 sets, daily range): BP systolic 100–138; BP diastolic 49–80; PULSE 40–80; RESP 16–20; TEMP 97.5–98.5; O2SAT 92–99
[2024-02-24] MEDS: DOCUSATE SOD 100 MG CAP PO PRN (10:42)
--- NOTE | 2024-02-24 15:29 | DVHPN2 ---
Subjective Patient continues to report having swelling to her left face, burning with her hands and her feet. Reviewed: Care Plan, H&P, Labs, Medications Changes from previous H/P or p: No Changes General: Per HPI Eyes: No Pain, No Vision change, No Conjunctivae inflammation, No Eyelid inflammation; Other (Facial swelling); No Redness ENT: No Ear pain, No Ear discharge, No Nose pain, No Nose discharge, No Nose congestion, No Mouth pain, No Mouth swelling, No Throat pain, No Throat swelling, No Other Cardiovascular: No Chest Pain, No Palpitations, No Orthopnea, No Paroxysmal Noc. Dyspnea, No Edema, No Lt Headedness, No Other Respiratory: No Cough, No Dry, No Shortness of breath, No SOB with excertion, No Wheezing, No Hemoptysis, No Pleuritic Pain, No Sputum, No Other Gastrointestinal: No Nausea, No Vomiting, No Abdominal Pain, No Diarrhea, No Constipation, No Melena, No Hematochezia, No Other Genitourinary: No Dysuria, No Frequency, No Incontinence, No Hematuria, No Retention, No Other Musculoskeletal: No other, No neck pain, No shoulder pain, No arm pain, No back pain, No hand pain, No leg pain, No foot pain Skin: No Rash, No Lesions, No Jaundice, No Bruising; Other (Skin redness) Objective Vitals Vital Signs Date Time Temp Pulse Resp B/P (MAP) Pulse Ox O2 Delivery O2 Flow Rate FiO2 02/24/24 13:00 98.5 65 19 132/78 (96) 98 98.5 02/24/24 08:10 Room Air* 0 21 Intake/Output Intake and Output 02/24/24 07:00 Intake Total 850 ml Balance 850 ml Intake Oral 800 ml IV Total 50 ml # Voids 5 # Bowel Movements 1 General Appearance: Alert, Oriented X3, Cooperative HEENT: Atraumatic, PERRLA Lungs: Clear to auscultation, Normal air movement Cardiovascular: Normal S1, Normal S2 Abdomen: Normal bowel sounds Musculoskeletal: Normal sensory function, Normal motor function Neuro: Normal speech Psych/Mental Status: Mental status NL, Mood NL Medications Current Medications Medications Dose Ordered Sig/Annetta Route Start Time Stop Time Status Last Admin Dose Admin Losartan Potassium 25 mg DAILY PO 02/23/24 10:00 02/23/24 08:40 25 MG Hydralazine HCl 10 mg Q6HP PRN IV 02/22/24 15:15 02/24/24 10:16 10 MG Levothyroxine Sodium 25 mcg QAM@0600 PO 02/23/24 06:00 02/24/24 05:38 25 MCG Gemfibrozil 600 mg DAILY PO 02/23/24 10:00 02/24/24 10:17 600 MG Sodium Chloride 10 ml Q8HR IV 02/22/24 22:00 02/24/24 05:36 10 ML Ondansetron HCl 4 mg Q4HP PRN IV 02/22/24 15:15 02/24/24 10:45 4 MG Docusate Sodium 100 mg BIDPRN PRN PO 02/22/24 15:15 02/24/24 10:42 100 MG Acetaminophen 650 mg Q6HP PRN PO 02/22/24 15:15 02/24/24 10:42 650 MG Nitroglycerin 0.4 mg Q5MINP PRN SL 02/22/24 16:45 Morphine Sulfate 2 mg Q30M PRN IV 02/22/24 16:45 Ceftriaxone Sodium 50 ml @ 100 mls/hr DAILY@09 IV 02/23/24 09:00 02/24/24 10:15 100 MLS/HR Clonidine HCl 0.1 mg Q4HP PRN PO 02/23/24 13:45 02/23/24 16:07 0.1 MG Amlodipine Besylate 10 mg DAILY PO 02/25/24 10:00 UNV Diphenhydramine HCl 25 mg Q6HP PRN IV 02/24/24 15:30 UNV Famotidine 20 mg Q12HR IV 02/24/24 22:00 UNV Methylprednisolone Sodium Succinate 80 mg Q8HR IV 02/24/24 22:00 UNV Laboratory Results Laboratory Tests 02/23/24 04:40 Urinalysis Test 02/22/24 14:30 Urine Color Colorless (Yellow) Urine Clarity Clear (Clear) Urine pH 7.0 (5.0-9.0) Urine Specific [place] 1.008 (1.001-1.035) Urine Protein Negative (Negative) Urine Ketones Negative (Negative) Urine Blood Negative /uL (Negative) Urine Nitrite Negative (Negative) Urine Bilirubin Negative (Negative) Urine Urobilinogen Normal mg/dL (Negative) Urine Leukocyte Esterase Trace /uL (Negative) Urine RBC 2 /hpf (0 - 4) Urine WBC 2 /hpf (0 - 5) Urine Squamous Epithelial Cells None seen /hpf (<5) Urine Bacteria None seen /hpf (None Seen) Urine Glucose Normal mg/dL (Normal) Labs and/or images reviewed: Labs reviewed by me, Image(s) reviewed by me Assessment/Plan Assessment/Plan Impression: -facial angioedema -bipolar disorder -primary hypertension -dyslipidemia -rule out sinus infection/abscess Plan: -CT scan of the sinuses -continue antibiotic therapy with Rocephin -antihypertensives: Increase amlodipine to 10 mg p.o. daily, continue p.r.n. hydralazine -patient refuses treatment for bipolar disorder -continue Lopid -H1/H2 evan, continue steroids. We will stop if patient has sinus abscess Total time spent with patient discussing and formulating plan of care: 35 minutes. This medical document was created using an electronic medical record system with [employer] dictation system. Although this document has been carefully reviewed, there may still be some phonetic and typographical errors. These areas are purely typographical due to imperfections of the software programs, and do not reflect any compromise in the patient's medical care. Plan discussed with: Patient, Other (RN) My Orders Orders - NICKY ANN NP Procedure Category Date Status Time Amlodipine Tablet PHA 02/25/24 Logged (Norvasc Tablet) 10:[address] 02/24/24 Logged 15:17 Diphenhdramine PHA 02/24/24 Logged Injection (Benadryl 15:30 Famotidine Injection PHA 02/24/24 Logged (Pepcid Injection) 22:00 Methylprednisolone PHA 02/24/24 Logged Sod Succ (Solu Medrol 22:00 Date of Service: Feb 24, 2024 Billing Provider: NICKY ANN NP Common Visit Codes: [id number] INP/OBS CARE(HIGH) NICKY ANN NP Feb 24, 2024 15:29
--- NOTE | 2024-02-24 16:04 | DVH ---
HISTORY: sinus abscess Comparison: CT head 01/14/2023 TECHNIQUE: Nonenhanced axial images through the facial bones with coronal and sagittal MPR. Radiation Dose Information: CT Dose: CTDI volume is 66.56 mGy. Dose-length product is 969.16 mGy*cm FINDINGS: There is no evidence of acute facial fracture or dislocation. Orbits: The bilateral orbits appear grossly normal. Sinuses: Bilateral frontal, ethmoid, sphenoid, and maxillary sinuses are clear. Facial swelling: Not appreciated IMPRESSION: 1. Clear bilateral paranasal sinuses. 2. No acute facial fracture or dislocation. Radiation optimization: All CT scans at this facility use at least one of these dose optimization jyoti hniques: automated exposure control mA and/or kV adjustment per patient size (includes targeted exam s where dose is matched to clinical indication) or iterative reconstruction. HS:Y
[2024-02-24] MEDS: diphenhdrAMINE HCL 50 MG/1 ML VL IV PRN (18:52)
[2024-02-24] MEDS: methylPREDNISolone SOD SUCC 125 MG/2 ML VL IV SCH (21:16)
[2024-02-24] MEDS: FAMOTIDINE (10MG/ML) 2ML VL IV SCH (21:16)
[2024-02-25 01:00] VITALS: BP 125/69; PULSE 58; RESP 19; TEMP 98.3; O2SAT 94
[2024-02-25 05:00] VITALS: BP 138/78; PULSE 67; RESP 20; TEMP 97.6; O2SAT 95
[2024-02-25 07:30] VITALS: PULSE 55
[2024-02-25 08:00] VITALS: PULSE 58
[2024-02-25 09:00] VITALS: BP 138/82; PULSE 58; RESP 20; TEMP 98; O2SAT 98
[2024-02-25] MEDS ORDERED: PRED20TA2 PO (10:00)
[2024-02-25] MEDS ORDERED: LORazepam 0.5 MG TAB PO PRN (10:00)
[2024-02-25] MEDS ORDERED: DIPH25CA66 PO (10:00)
--- NOTE | 2024-02-25 10:33 | DVHDS2 ---
Discharge Summary Date of Admission Feb 22, 2024 at 16:36 Date of Discharge: Feb 25, 2024 Admitting Diagnosis Allergic reaction Labs/Diagnostic Data: Laboratory Results Test 02/23/24 04:40 02/22/24 16:00 02/22/24 14:30 02/22/24 11:30 White Blood Count 14.3 10^3/uL (4.4-10.8) Red Blood Count 5.03 10^6/uL (4.0-5.20) Hemoglobin 14.4 g/dL (12.2-16.2) Hematocrit 43.2 % (36.0-46.0) Mean Corpuscular Volume 85.8 fL (80.0-100.0) Mean Corpuscular Hemoglobin 28.7 pg (28.0-32.0) Mean Corpuscular Hemoglobin Concent 33.4 g/dL (32.0-36.0) Red Cell Distribution Width 13.9 % (11.8-14.3) Platelet Count 281 10^3/uL (140-450) Mean Platelet Volume 8.0 fL (6.9-10.8) Neutrophils (%) (Auto) % (37.0-80.0) Lymphocytes (%) (Auto) % (10.0-50.0) Monocytes (%) (Auto) % (0.0-12.0) Basophils (%) (Auto) % (0.0-2.0) Neutrophils # (Auto) 10 ^3/uL (1.6-8.6) Lymphocytes # (Auto) 10 ^3/uL (0.4-5.4) Monocytes # (Auto) 10 ^3/uL (0-1.3) Differential Total Cells Counted 100.0 (100) Neutrophils % (Manual) 72 (37.0-80.0) Band Neutrophils % (Manual) 3 Lymphocytes % (Manual) 18 (10.0-50.0) Monocytes % (Manual) 7 (0-12) Eosinophils % (Manual) 0 (0-7) Basophils % (Manual) 0 (0.0-2.0) Metamyelocytes % (manual) 0 Myelocytes % (Manual) 0 Promyelocytes % (Manual) 0 Blast Cells % (Manual) 0 Reactive Lymphocytes 0 Platelet Estimate Adequate Sodium Level 141 mmol/L (136-145) Potassium Level 3.9 mmol/L (3.5-5.1) Chloride Level 105 mmol/L (98-107) Carbon Dioxide Level 29 mmol/L (20-31) Anion Gap 7 (5-15) Blood Urea Nitrogen 17 mg/dL (9-23) Creatinine 1.10 mg/dL (0.550-1.02) Glomerular Filtration Rate Calc 62 mL/min (>90) BUN/Creatinine Ratio 15.5 (10.0-20.0) Serum Glucose 138 mg/dL (74-106) Calcium Level 10.3 mg/dL (8.7-10.4) Total Bilirubin 0.8 mg/dL (0.2-1.0) Aspartate Amino Transferase (AST) 13 U/L (13-40) Alanine Aminotransferase (ALT) 81 U/L (7-40) Alkaline Phosphatase 81 U/L (46-116) Total Protein 7.5 g/dL (5.7-8.2) Albumin 5.0 g/dL (3.2-4.8) Troponin I High Sensitivity 6 ng/L (</=34) Urine Color Colorless (Yellow) Urine Clarity Clear (Clear) Urine pH 7.0 (5.0-9.0) Urine Specific [place] 1.008 (1.001-1.035) Urine Protein Negative (Negative) Urine Ketones Negative (Negative) Urine Blood Negative /uL (Negative) Urine Nitrite Negative (Negative) Urine Bilirubin Negative (Negative) Urine Urobilinogen Normal mg/dL (Negative) Urine Leukocyte Esterase Trace /uL (Negative) Urine RBC 2 /hpf (0 - 4) Urine WBC 2 /hpf (0 - 5) Urine Squamous Epithelial Cells None seen /hpf (<5) Urine Bacteria None seen /hpf (None Seen) Urine Glucose Normal mg/dL (Normal) Large Platelets Few Hemoglobin A1c 5.7 % A1C (<5.7) B-Type Natriuretic Peptide 124.50 pg/mL (0-100) Thyroid Stimulating Hormone (TSH) 5.40 uIU/mL (0.55-4.78) Other Laboratory Tests 02/23/24 04:40 Brief Hx & Hospital Course: History of Present Illness The patient is a 48-year-old female with past medical history of hypertension, h ypertriglyceridemia, and thyroid disease who presented to [facility] ED with complaint of facial swelling. Patient reports has been having elevated blood pressure, facial redness, seen in the ED recently with diagnoses of sinus infection and discharged home with prescribed Levaquin and prednisone. Patient reports symptoms progressively get worse with increased swellings, occipital headache, bilateral upper extremity redness, facial redness, getting worse that prompted this visit. Patient was seen and evaluated in the ED, laboratory data shows WBC 12.5, platelets 247, sodium 140, potassium 4.0, BUN 21, creatinine 1.04, glucose 168, BNP 120 450, troponin 5, blood pressure 192/114, rate 83, temperature 98.3 F, O2 saturation 99% on room air. Patient was started on IV hydralazine, please see medication orders section in the computer. On my assessment, patient denied chest pain, no headache, no dizziness, no diaphoresis, no shortness of breath, no nausea, no vomiting, no fever, no chills. Patient was admitted for further evaluation and medical management. Course of hospitalization: Patient was treated with IV Solu-Medrol, IV Pepcid, IV Benadryl. Patient reports that she was told that she has a sinus infection. Sinus CT scan of the maxillofacial area was performed which revealed no sinusitis or any acute pathology. Antibiotics were stopped. Patient was facial swelling has improved. Patient does report having redness to the palms of her hands as well as her feet as well as her symptoms getting worse when she ambulates. Patient was vital signs have been stable. Given that she was on an Arb, he was medication will be stopped. Blood pressure has been managed with amlodipine 10 mg p.o. daily. Patient was requesting for an child welfare director, as instructed to follow up with her PCP. She states that she was not happy with the current PCP in once to search for a new provider. The patient will be discharged home and continued on prednisone 20 mg p.o. twice a day for three days as well as Benadryl twice a day. She was instructed to continue all medications other than losartan at this time. Patient also disclosed that she has a history of bipolar disorder and refuses to take medications at this time. Patient was given anxiolytics while in the hospital. Physical examination General: Alert and Oriented x3. No acute distress. Well-nourished. Eyes: EOMI. Anicteric. HENT: Moist mucous membranes. Lungs: Clear to auscultation bilaterally. No accessory muscle use. Cardiovascular: Regular rate and rhythm. No murmur. No JVD. Abdomen: Soft, non-tender and non-distended. No palpable masses. Extremities: No edema. Non-tender. Skin: No rashes or lesions. Warm. Neurologic: No focal neurological deficits. CN II-XII grossly intact, but not individually tested. Psychiatric: Rapid rate of speech. Persistently interrupting conversation. Labile mood. Total time spent with patient discussing and formulating plan of care: 35 minutes. This medical document was created using an electronic medical record system with [employer] dictation system. Although this document has been carefully reviewed, there may still be some phonetic and typographical errors. These areas are purely typographical due to imperfections of the software programs, and do not reflect any compromise in the patient's medical care. Condition at Discharge: Guarded Final Diagnosis/Problems List Allergic reaction with facial angioedema Secondary Diagnosis: -facial angioedema -bipolar disorder -primary hypertension -dyslipidemia -ruled out sinus infection/abscess Discharge Disposition: Home Discharge Instruct/Medications Diet: Cardiac 2g Na,low cholest Activity: No Restrictions, As Tolerated Follow Up/Referral: Discharge Clinic in one week. Recommended to follow up with PCP, but patient states that she was switching her PCP. Med to be seen by outpatient psychiatry Medications: Prednisone 20 mg p.o. twice a day x3 days Benadryl 25 mg p.o. twice a day x3 days 36 Discharge Statement: "Patient was advised to return to the ER or call 911 if any headaches, dizziness, shortness of breath, chest pain, abdominal pain, bleeding, fevers, or worsening of medical condition. Patient was counseled about treatment plan, medications, possible side effects, patientverbalized understanding. All questions were answered to the best of my ability. This discharge took greater then 30 minutes in planning, reviewing documentation, counseling the patient, and discussing with other team members." ASSESSMENT ASSESSMENT Assessment Allergic reaction with facial angioedema Date of Service: Feb 25, 2024 Billing Provider: NICKY ANN NP Common Visit Codes: [id number] DISCH DAY >30min NICKY ANN NP Feb 25, 2024 10:33
[2024-02-25] MEDS: amLODIPine BESYLATE 5 MG TAB PO SCH (11:39)
[2024-02-25 12:00] VITALS: BP 153/81; PULSE 60; RESP 20; TEMP 98.7; O2SAT 97
--- NOTE | 2024-02-25 12:53 | DVHSR ---
APPROVED REPORT EXAM: Two-dimensional and M-mode echocardiogram with Doppler and color Doppler. Blood Pressure: 152/76 mmHg INDICATION Hypertension RISK FACTORS Height: 5'5", Weight: 224 DIMENSIONS LVDd4.9 (3.8-5.7cm)LA (2D)4.0 (1.9-4.0cm)Aortic Root (2.0-3.7cm) LVDs3.2 (2.5-4.0cm)LA (MM) (1.9-4.0cm)Aortic Cusp Exc (1.5-2.0cm) EF (%) 65.0 (55-70%)Rt. Atrium (1.9-4.0cm)Asc. Aorta3.7 cm Mitral Valve MitralMitral Stenosis E wave0.84m/sMV Mean GR.mmHg A wave0.94m/sMV Peak GR.mmHg E/A ratio0.92D MVAcm2 DECEL [id number] 1/2 Timems Aortic Valve Aortic ValveAortic Stenosis V11.43m/Teressa Mean GR.5mmHg V21.43m/Teressa Peak GR.8mmHg LVOT Diameter2.1 (1.8-2.4cm)Doppler AVA3.46cm2 Other Information Quality : Technically LimitedRhythm : Technically limited study due to body habitus. Conclusion Sinus rhythm. Left atrial enlargement. Normal valves. 60% ejection fraction. Doppler is unremarkable. No pericardial effusion masses or vegetations.
== END 2024-02-25 12:15 | disposition home or self-care (01) | DRG 305 ==
LOC: ER 11:03 → EEVIPCON 16:36 → TELE 16:36 → TELE-WESTW 02-23 14:55
PROVIDERS: ADMIT Nurse Practitioner Family; ATTEND Nurse Practitioner Acute Care
DX: I16.0 Hypertensive urgency (principal); T78.3XXA Angioneurotic edema, initial encounter; D72.829 Elevated white blood cell count, unspecified; F31.9 Bipolar disorder, unspecified; F17.200 Nicotine dependence, unspecified, uncomplicated; E78.1 Pure hyperglyceridemia; Z88.1 Allergy status to other antibiotic agents; Z88.5 Allergy status to narcotic agent; Z90.710 Acquired absence of both cervix and uterus; Z82.62 Family history of osteoporosis; Z79.899 Other long term (current) drug therapy
CPT/HCPCS: 36415; 70486; 71045; 80048; 80053; 81001; 83036; 83880; 84443; 84484; 85007; 85027; 93306; 96365; 96375; 99291; G0378; J1100; J2405; J3490

== ENCOUNTER → 2024-04-18 | Outpatient (CLI) | payer BC ==
[~2024-04-18] MED LIST changes: +DILT-29 PO; +DIPH25CA66 PO; +LEVO-848 PO; +LEVO25TA6 PO; -LEVO500T91 PO; +OMEP20TA PO
[2024-04-18 08:45] LABS: Basophils # (auto) 0 10 ^3/uL (0-0.2); Basophils % (auto) 0.6 % (0.0-2.0); Eosinophils # (auto) 0.2 10 ^3/uL (0-0.8); Eosinophils % (auto) 4.2 % (0.0-7.0); Hemoglobin 14.7 g/dL (12.2-16.2); Lymphocytes % (auto) 34.6 % (10.0-50.0); Mean Corpuscular Hemoglobin 29.1 pg (28.0-32.0); Mean Corpuscular Volume 83.1 fL (80.0-100.0); Monocytes # (auto) 0.4 10 ^3/uL (0-1.3); Neutrophils # (auto) 3.2 10 ^3/uL (1.6-8.6); Neutrophils % (auto) 54.6 % (37.0-80.0); Nucleated Red Blood Cells % 0.1 %; Platelet Count (auto) 228 10^3/uL (140-450); Red Blood Cells 5.06 10^6/uL (4.0-5.20); Red Cell Distribution Width 12.8 % (11.8-14.3); White Blood Cell 5.9 10^3/uL (4.4-10.8)
[2024-04-18 09:43] LABS: Alkaline Phosphatase 101 U/L (46-116); Anion Gap 9 (5-15); Blood Urea Nitrogen 11 mg/dL (9-23); Calcium 9.8 mg/dL (8.7-10.4); Carbon Dioxide 26 mmol/L (20-31); Chloride 105 mmol/L (98-107); Potassium 3.7 mmol/L (3.5-5.1); Sodium 140 mmol/L (136-145)
[2024-04-18 09:45] LABS: Bilirubin, Total 0.4 mg/dL (0.2-1.0); Total Protein 6.9 g/dL (5.7-8.2)
[2024-04-18 09:51] LABS: Alanine Aminotransferase 45 U/L (7-40); Albumin 4.8 g/dL (3.2-4.8); Aspartate Aminotransferase < 8 U/L (13-40); Cholesterol 201 mg/dL (< 200); Glucose 114 mg/dL (74-106); HDL Cholesterol 37 mg/dL (40-59); Triglycerides 530 mg/dL (< 150)
[2024-04-18 09:52] LABS: Urine Blood Negative /uL (Negative); Urine Clarity Clear (Clear); Urine Color Colorless (Yellow); Urine Protein, UAD Negative (Negative); Urine Specific Gravity 1.008 (1.001-1.035); Urine Urobilinogen Normal (Negative); Urine pH 6.5 (5.0-9.0)
[2024-04-20 17:06] LABS: D001-IgE D pteronyssinus <0.10 kU/L (Class 0); E001-IgE Cat Hair/Dander 0.98 kU/L (Class II); E005-IgE Dog Dander 4.94 kU/L (Class IV); G002-IgE Bermuda Grass <0.10 kU/L (Class 0); IgE Alternaria alternata 0.34 kU/L (Class I); IgE Cedar, Mountain <0.10 kU/L (Class 0); IgE Cockroach, German <0.10 kU/L (Class 0); IgE Cottonwood <0.10 kU/L (Class 0); IgE Elm, American <0.10 kU/L (Class 0); IgE Johnson Grass <0.10 kU/L (Class 0); IgE Mugwort <0.10 kU/L (Class 0); IgE Penicillium chrysogen <0.10 kU/L (Class 0); IgE Ragweed, Short <0.10 kU/L (Class 0); IgE Rye, Perennial <0.10 kU/L (Class 0); Immunoglobulin E 31 IU/mL (6-495); M002-IgE Cladosporium herbaru <0.10 kU/L (Class 0); M003-IgE Aspergillus fumigatu <0.10 kU/L (Class 0); T007-IgE Oak, White <0.10 kU/L (Class 0); T009-IgE Olive Tree <0.10 kU/L (Class 0); T019-IgE Mimosa/Acacia <0.10 kU/L (Class 0); W011-IgE Thistle, Russian <0.10 kU/L (Class 0); W014-IgE Pigweed, Rough <0.10 kU/L (Class 0)
== END | disposition home or self-care (01) ==
LOC: LAB 06:26
PROVIDERS: ATTEND Student in an Organized Health Care Education/Training Program
DX: I10 Essential (primary) hypertension (principal); E03.9 Hypothyroidism, unspecified; R73.9 Hyperglycemia, unspecified; J30.2 Other seasonal allergic rhinitis
CPT/HCPCS: 36415; 80053; 80061; 81003; 82306; 82785; 83036; 84439; 84443; 85025; 86003

== ENCOUNTER 2024-09-07 17:01 | Inpatient (IN) | payer BC ==
[~2024-09-07] VITALS: Ht 172.7 cm; Wt 104.1 kg
[2024-09-07 18:35] VITALS: BP 116/59; PULSE 66; RESP 20; TEMP 98.6; O2SAT 96
[2024-09-07 19:19] VITALS: PULSE 81; RESP 18; O2SAT 98
[2024-09-07] MEDS ORDERED: SODIUM CHLORIDE 0.9% 1,000 ML IV ONE (19:30)
[2024-09-07] MEDS ORDERED: METOCLOPRAMIDE HCL 5MG/ml INJ 2ml VIAL IV PRN (19:30)
[2024-09-07] MEDS ORDERED: VANCOMYCIN PER PHARMACY 0 MG IV SCH (19:30)
[2024-09-07] MEDS ORDERED: ACETAMINOPHEN 325 MG TAB PO PRN (19:30)
--- NOTE | 2024-09-07 19:50 | DVHHPRES ---
History of Present Illness Resident Creating Document: LEONARDO GIRALDO RESDIENT History of Present Illness This is a 49-year-old female with past medical history of irritable bowel syndrome, hypothyroidism, dyslipidemia, hypertension, depression, and recurrent perianal abscess came to the hospital due to diarrhea. Per patient, she was started on Augmentin 5 days back due to perianal area abscess, subsequently she developed watery diarrhea, and by taking Imodium did not help. Today, she had 6 bowel movements since morning. She also reports of mild abdominal pain. She denies fever, chest pain, shortness of breaths, recent sick contacts, unusual food intake or urinary symptoms. PMHx: irritable bowel syndrome, hypothyroidism, dyslipidemia, hypertension, depression, and recurrent perianal abscess PSHx: Hysterectomy Home medication: Metoprolol, levothyroxine, gemfibrozil, escitalopram, omeprazole, vitamin-D, Augmentin, amlodipine, fluticasone Allergic history: Codeine, doxycycline, erythromycin, garlic, lactulose intolerance, on your own, strawberry, sulfa antibiotic Patient seen and examined at the bedside. Patient is complaining of mild abdominal pain and diarrhea. Review of Systems Allergies: Coded Allergies: Garlic (Verified Allergy, Severe, Diarrhea (powder type okay), 02/23/24) Lactose Intolerance (GI) (Verified Allergy, Severe, diarrhea , 02/23/24) Onion (Verified Allergy, Severe, Diarrhea (Powder type is okay), 02/23/24) [place] (Verified Allergy, Severe, anaphalactic (tongue and lips swells) , 02/23/24) Doxycycline (Verified Allergy, Intermediate, 06/25/21) Erythromycin (Verified Allergy, Intermediate, 06/25/21) Sulfa Antibiotics (Verified Allergy, Mild, hives, 06/25/21) Codeine (Verified Adverse Reaction, Intermediate, 06/25/21) Medications Current Medications Medications Dose Ordered Sig/Annetta Route Start Time Stop Time Status Last Admin Dose Admin Metoclopramide HCl 10 mg Q4HP PRN IV 09/07/24 19:30 Acetaminophen 650 mg Q6HP PRN PO 09/07/24 19:30 Enoxaparin Sodium 40 mg DAILY SC 09/08/24 10:00 UNV Vancomycin HCl 0 ml @ 0 mls/hr UD IV 09/07/24 19:30 UNV Ondansetron HCl 4 mg Q4HPRN PRN IV 09/07/24 19:30 Metoprolol Succinate 50 mg DAILY PO 09/08/24 10:00 Exam Exam General Appearance: Alert, Oriented X3, Cooperative, No acute distress HEENT: Atraumatic, PERRLA, EOMI, Mucous membrane moist/pink Respiratory: Clear to auscultation, Normal air movement Cardiovascular: Regular rate, Normal S1, Normal S2, No murmurs, no chest wall tenderness Abdominal: Mild abdominal tenderness Extremities: No clubbing, No cyanosis, No edema, Normal pulses, No tenderness/swelling Skin: No rashes, No breakdown, No significant lesion Neuro: Normal gait, Normal speech, Strength at 5/5 X4 ext, Normal tone, Sensation intact, Cranial nerves 3-12 NL, Reflexes 2+ Psych/Mental Status: Mental status NL, Mood NL Assessment/Plan Assessment/Plan Gastroenteritis, likely infectious ? C diff ? Irritable bowel syndrome flare-up Obesity Hypothyroidism Hypertension Depression Dyslipidemia Perianal abscess Plan/recommendation * Empiric antibiotic, vancomycin and Flagyl * IV fluid * Zofran * Continue home meds * Check stool C diff, bacteria, culture, stool ova and parasites DIET: Clear liquid diet DVT PROPHYLAXIS: Lovenox CODE STATUS: Goal of care discussed for more than 18 minutes, full code DISPOSITION: Med/surge Patient's status and plan discussed with the patient. Case discussed with Dr. Lu. Plan discussed with: Patient, Other (RN) My Orders Orders - LEONARDO GIRALDO RESDITANIA Procedure Category Date Status Time Admit ADMIT 09/07/24 Transmitted 19:29 Code Status CODE 09/07/24 Transmitted 19:29 Review Orders With HUNTER 09/07/24 In Process Adm. 19:29 Metoclopramide PHA 09/07/24 Logged Injection (Reglan 19:30 Acetaminophen Tablet PHA 09/07/24 Logged (Tylenol Tablet) 19:30 Notify Of Changes [facility] 09/07/24 In Process From Base 19:29 Advance Directive [facility] 09/07/24 In Process 19:29 Basic Metabolic Panel LAB 09/07/24 Logged 19:29 Urinalysis LAB 09/07/24 Logged 19:29 Complete Blood Count LAB 09/07/24 Logged 19:29 Lipid Panel LAB 09/07/24 Logged 19:29 Patient Condition ORDERS 09/07/24 Transmitted 19:29 Allergies HUNTER 09/07/24 In Process 19:29 Drug Screen LAB 09/07/24 Logged 19:29 Hemoglobin A1c LAB 09/07/24 Logged 19:29 Enoxaparin Sodium PHA 09/08/24 Logged (Lovenox) 10:00 Stat Ekg For Chest HUNTER 09/07/24 In Process Pain 19:29 Notify Of Changes HUNTER 09/07/24 In Process From Base 19:29 Vancomycin Per PHA 09/07/24 Logged Pharmacy 19:30 Sodium Chloride 0.9% PHA 09/07/24 Logged 19:30 Ondansetron Hcl PHA 09/07/24 Logged (Zofran) 19:30 Metoprolol Xl PHA 09/08/24 Logged Succinate (Toprol Xl) 10:00 Metoprolol Xl PHA 09/07/24 Logged Succinate (Toprol Xl) 19:30 Clostridium Difficile ALISHA 09/07/24 Uncollected Toxin 19:29 Stool Bacterial ALISHA 09/07/24 Uncollected Culture 19:29 Ph Stool LAB 09/07/24 Logged 19:29 Ova & Parasite Exam ALISHA 09/07/24 Uncollected 19:29 Date of Service: Sep 07, 2024 Billing Provider: JOHNATHAN ROB MD Common Visit Codes: [id number] INP/OBS CARE (HIGH) LEONARDO GIRALDO RESDIENT Sep 07, 2024 19:50 JOHNATHAN ROB MD Sep 12, 2024 21:48
[2024-09-07 19:59] LABS: Basophils # (auto) 0.1 10 ^3/uL (0-0.2); Basophils % (auto) 0.7 % (0.0-2.0); Eosinophils # (auto) 0.1 10 ^3/uL (0-0.8); Eosinophils % (auto) 1.6 % (0.0-7.0); Hematocrit 42.5 % (36.0-46.0); Hemoglobin 14.9 g/dL (12.2-16.2); Lymphocytes # (auto) 2.9 10 ^3/uL (0.4-5.4); Lymphocytes % (auto) 38.3 % (10.0-50.0); Mean Corpuscular Hemoglobin 28.1 pg (28.0-32.0); Mean Corpuscular Volume 80.2 fL (80.0-100.0); Monocytes # (auto) 0.5 10 ^3/uL (0-1.3); Monocytes % (auto) 6.5 % (0.0-12.0); Neutrophils % (auto) 52.9 % (37.0-80.0); Nucleated Red Blood Cells % 0.3 %; Platelet Count (auto) 260 10^3/uL (140-450); Red Cell Distribution Width 13.4 % (11.8-14.3); White Blood Cell 7.5 10^3/uL (4.4-10.8)
[2024-09-07 20:00] VITALS: PULSE 67; RESP 18; O2SAT 98
[2024-09-07 20:09] LABS: Anion Gap 12 (5-15); Carbon Dioxide 26 mmol/L (20-31); Chloride 102 mmol/L (98-107); Potassium 3.6 mmol/L (3.5-5.1); Sodium 140 mmol/L (136-145)
[2024-09-07 20:10] LABS: Calcium 10.1 mg/dL (8.7-10.4)
[2024-09-07 20:15] LABS: Blood Urea Nitrogen 16 mg/dL (9-23); Glucose 94 mg/dL (74-106)
[2024-09-07 20:17] LABS: Cholesterol 186 mg/dL (< 200)
[2024-09-07 20:26] LABS: HDL Cholesterol 32 mg/dL (40-59); LDL Cholesterol 126 mg/dL (< 100); Triglycerides 231 mg/dL (< 150)
[2024-09-07] MEDS ORDERED: METO-289 PO (20:40)
[2024-09-07] MEDS ORDERED: AMOX875T4 PO (20:46)
[2024-09-07] MEDS ORDERED: LUMA42CA PO (20:46)
[2024-09-07] MEDS ORDERED: GEMF-66 PO (20:46)
[2024-09-07] MEDS ORDERED: HYDR-3682 PO (20:46)
[2024-09-07] MEDS ORDERED: FLUT1SPR21 (20:46)
[2024-09-07] MEDS ORDERED: CHOL500033 PO (20:46)
[2024-09-07] MEDS ORDERED: TRIA37.586 PO (20:47)
[2024-09-07] MEDS ORDERED: LORA-1126 PO (20:47)
[2024-09-07] MEDS ORDERED: ESCI5TAB20 PO (20:47)
[2024-09-07 21:00] VITALS: BP 116/59; PULSE 66; RESP 20; TEMP 98.6; O2SAT 96
[2024-09-07] MEDS: SODIUM CHLORIDE 0.9% 1,000 ML IV SCH (21:34)
[2024-09-07] MEDS: metroNIDAZOLE 500MG/100ML 100 ML IV ONE (21:34)
[2024-09-07] MEDS: METOPROLOL SUCCINATE XL 50 MG TAB PO ONE (21:34)
[2024-09-07] MEDS: VANCOMYCIN 1GM/200ML PM 200 ML IV SCH (22:00)
[2024-09-08] VITALS (7 sets, daily range): BP systolic 20–140; BP diastolic 45–83; PULSE 51–86; RESP 16–18; TEMP 97.8–98.2; O2SAT 97–99
[2024-09-08] MEDS: LEVOTHYROXINE SODIUM 25 MCG TAB PO SCH (05:48)
[2024-09-08 06:47] LABS: Chloride 105 mmol/L (98-107); Potassium 3.7 mmol/L (3.5-5.1); Sodium 142 mmol/L (136-145)
[2024-09-08 06:48] LABS: Anion Gap 11 (5-15); Calcium 9.4 mg/dL (8.7-10.4); Carbon Dioxide 26 mmol/L (20-31)
[2024-09-08 06:53] LABS: BUN/Creatinine Ratio 12.1 (10.0-20.0); Blood Urea Nitrogen 13 mg/dL (9-23); Glucose 110 mg/dL (74-106)
[2024-09-08] MEDS ORDERED: MORPHINE SULFATE INJ 2 MG/ml SYRG IV PRN (09:00)
[2024-09-08] MEDS ORDERED: HYDROcodone-ACET 5/325MG TAB PO PRN (09:00)
[2024-09-08] MEDS: ENOXAPARIN SOD 40 MG/0.4 ML SYRINGE SC SCH (09:57)
[2024-09-08] MEDS: METOPROLOL SUCCINATE XL 50 MG TAB PO SCH (09:58)
[2024-09-08] MEDS ORDERED: METOPROLOL SUCCINATE XL 50 MG TAB PO SCH (10:00)
[2024-09-08 10:25] LABS: Alanine Aminotransferase 42 U/L (7-40); Albumin 4.5 g/dL (3.2-4.8); Alkaline Phosphatase 65 U/L (46-116); Anion Gap 11 (5-15); Aspartate Aminotransferase 34 U/L (<34); BUN/Creatinine Ratio 11.2 (10.0-20.0); Blood Urea Nitrogen 13 mg/dL (9-23); Calcium 9.4 mg/dL (8.7-10.4); Carbon Dioxide 25 mmol/L (20-31); Chloride 105 mmol/L (98-107); Glucose 168 mg/dL (74-106); Magnesium 1.7 mg/dL (1.6-2.6); Potassium 3.5 mmol/L (3.5-5.1); Sodium 141 mmol/L (136-145); Total Protein 6.4 g/dL (5.7-8.2)
[2024-09-08 10:26] LABS: Bilirubin, Total 0.8 mg/dL (0.2-1.0)
[2024-09-08 10:34] LABS: INR 1.04 (0.9-1.15); Partial Thromboplastin Time 29.6 SEC (24.5-34.5)
[2024-09-08 12:47] LABS: Urine Bacteria FEW /hpf (None Seen); Urine Blood Negative /uL (Negative); Urine Clarity Clear (Clear); Urine Color Light-Yellow (Yellow); Urine Protein, UAD Negative (Negative); Urine Specific Gravity 1.008 (1.001-1.035); Urine Squamous Epithelial Cell FEW /hpf (<5); Urine Urobilinogen Normal (Negative); Urine WBC 2 /HPF (0-5); Urine pH 5.5 (5.0-9.0)
[2024-09-08 12:58] LABS: Amphetamine Screen, Urine Neg (NEGATIVE)
[2024-09-08 12:59] LABS: Barbiturate Scree,Urine Neg (NEGATIVE); Benzodiazephine Screen, Urine Neg (NEGATIVE); Cannabinoid Screen, Urine Pos (NEGATIVE); Cocaine Screen, Urine Neg (NEGATIVE); Opiate Scree,Urine Neg (NEGATIVE); Phencyclidine Screen, Urine Neg (NEGATIVE)
[2024-09-08] MEDS: HYDROcodone-ACET 5/325MG TAB PO PRN (14:55)
[2024-09-08] MEDS ORDERED: metroNIDAZOLE 500MG/100ML 100 ML IV ONE (15:45)
--- NOTE | 2024-09-08 15:45 | DVHPNRES ---
Progress Note Date Seen: Sep 08, 2024 Resident Creating Document: SALVADOR SNIDER RESIDENT Medical Necessity Reason Pt with a Central, PICC or Fol: No Subjective Review of Systems This is a 49-year-old female with past medical history of irritable bowel syndrome, hypothyroidism, dyslipidemia, hypertension, depression, and recurrent perianal abscess came to the hospital due to diarrhea. Per patient, she was started on Augmentin 5 days back due to perianal area abscess, subsequently she developed watery diarrhea, and by taking Imodium did not help. Today, she had 6 bowel movements since morning. She also reports of mild abdominal pain. She denies fever, chest pain, shortness of breaths, recent sick contacts, unusual food intake or urinary symptoms. PMHx: irritable bowel syndrome, hypothyroidism, dyslipidemia, hypertension, depression, and recurrent perianal abscess PSHx: Hysterectomy Home medication: Metoprolol, levothyroxine, gemfibrozil, escitalopram, omeprazole, vitamin-D, Augmentin, amlodipine, fluticasone Allergic history: Codeine, doxycycline, erythromycin, garlic, lactulose intolerance, on your own, strawberry, sulfa antibiotic Patient seen and examined, reports feeling better, nausea resolved. Diet increased to full liquid. Objective vital signs Vital Sign Date Time Temp Pulse Resp B/P (MAP) Pulse Ox O2 Delivery O2 Flow Rate FiO2 09/08/24 13:00 97.8 51 16 131/62 (85) 97 97.8 09/08/24 08:10 Room Air* 0 21 Total Intake and Output 09/07/24 09/07/24 09/08/24 15:00 23:00 07:00 Intake Total 100 ml 600 ml Balance 100 ml 600 ml medications Current Medications Medications Dose Ordered Sig/Annetta Route Start Time Stop Time Status Last Admin Dose Admin Acetaminophen 650 mg Q6HP PRN PO 09/07/24 19:30 Enoxaparin Sodium 40 mg DAILY SC 09/08/24 10:00 09/08/24 09:57 40 MG Vancomycin HCl 0 ml @ 0 mls/hr UD IV 09/07/24 19:30 Ondansetron HCl 4 mg Q4HPRN PRN IV 09/07/24 19:30 Metoprolol Succinate 50 mg BID PO 09/08/24 10:00 09/08/24 09:58 50 MG Levothyroxine Sodium 25 mcg QAM@0600 PO 09/08/24 06:00 09/08/24 05:48 25 MCG Sodium Chloride 1,000 ml @ 125 mls/hr Q8H IV 09/07/24 20:00 09/08/24 10:05 125 MLS/HR Vancomycin HCl 200 ml @ 200 mls/hr Q12H IV 09/07/24 22:00 09/08/24 09:55 200 MLS/HR Patient Own Medication 1 HS PO 09/07/24 22:13 09/07/24 22:21 1 Acetaminophen/ Hydrocodone Bitart 1 tab Q4HPRN PRN PO 09/08/24 09:00 UNV Morphine Sulfate 1 mg Q4HPRN PRN IV 09/08/24 09:00 UNV Acetaminophen/ Hydrocodone Bitart 1 tab Q4HPRN PRN PO 09/08/24 10:00 09/08/24 14:55 1 TAB Phenazopyridine HCl 100 mg TIDWM PO 09/08/24 18:00 Examination Obese female patient lying in bed, in no acute distress General: Obese, afebrile, palor, mucosae are moist Cardiovascular: Regular S1 and S2. No murmurs, gallops or rubs. No JVD elevation. No pedal edema Respiratory: Normal B/L air entry on room air. Clear lung sounds on auscultation Abdomen: Soft, left lower quadrant tenderness nondistended, normoactive bowel sounds, no rebound tenderness, no organomegaly, no masses Genitourinary: Deferred MSK/skin: Mobilizes 4 limbs. Skin is dry and warm Neurological: No motor, no sensitive deficits, normal speech. Pupils are isocoric and reactive. Psych/Mental Status: A/Ox3 laboratory and microbiology Laboratory Tests 09/08/24 09:46 09/07/24 19:45 Test 09/08/24 09:46 Range/Units Serum Glucose 168 H 74-106 mg/dL Microbiology Date/Time Source Procedure Growth Status 09/07/24 23:00 Stool Received Labs and/or images reviewed: Labs reviewed by me, Image(s) reviewed by me Problem List/Assessment/Plan Problem List/Assessment/Plan ? Right gluteal cleft abscess -= recurrent Gluteal ultrasound ordered IV vancomycin 09/07 Acute gastroenteritis, likely infectious Rule out C difficult ? Irritable bowel syndrome flare-up IV metronidazole 09/07 Discontinued NS 125 cc/hours C diff studies, stool culture pending, stool WBC Hypertension Metoprolol 50 XL succinate daily Hypothyroidism Levothyroxine 25 mcg daily Dyslipidemia Atorvastatin 40 mg daily Lovenox 40 mg sc daily Full liquid diet Plan discussed with patient in which all questions have been answered Goals of care discussed for more than 20 minutes, full code status Case discussed with Dr. Lu Plan discussed with: Patient My Orders My Orders Orders - SALVADOR SNIDER Procedure Category Date Status Time Stool Occult Blood LAB 09/09/24 Verified 04:00 Transfer Orders XFER 09/08/24 Transmitted 08:50 Discontinue Tele HUNTER 09/08/24 In Process 08:50 Hydrocodone-Acet PHA 09/08/24 In Process 5/325mg Tab ([place] 10:00 Clostridium Difficile ALISHA 09/08/24 Logged Toxin 13:29 Free T4 (Free LAB 09/08/24 In Process Thyroxine) 14:50 Phenazopyridine Hcl PHA 09/08/24 In Process Tablet (Pyridium Tab 18:00 Date of Service: Sep 08, 2024 Billing Provider: FLORENCE WORKMAN MD Common Visit Codes: [id number] INP/OBS CARE(HIGH) SALVADOR SNIDER Sep 08, 2024 15:45 FLORENCE WORKMAN MD Sep 12, 2024 22:11
--- NOTE | 2024-09-08 16:26 | DVH ---
Exam: US RIGHT LOWER EXTREMITY ULTRASOU Date: 09/08/2024 03:50 PM Clinical History: r/o abcess Comparison: None Technique: Targeted sonographic evaluation of the soft tissues of the right buttock was obtained utilizing calvin abram and color Doppler imaging. Findings: A 2.3 x 1 x 1.7 cm homogeneous collection with vascularity in the right buttock. Etiology is indeterm inate by ultrasound IMPRESSION: 1. 2.3 x 1 x 1.7 cm solid homogeneous structure with vascularity in the right buttock. Etiology is in determinate by ultrasound.
[2024-09-08] MEDS: PHENAZOPYRIDINE HCL 100 MG TAB PO SCH (18:26)
[2024-09-08] MEDS: metroNIDAZOLE 500MG/100ML 100 ML IV ONE (22:41)
[2024-09-08] MEDS: cefTRIAXone 1GM/50ML D5W 50 ML IV ONE ×2 (22:41→22:56)
[2024-09-08] MEDS: ATORVASTATIN 20 MG TAB ONE (22:41)
[2024-09-08] MEDS: ATORVASTATIN 20 MG TAB PO SCH (22:57)
[2024-09-08] MEDS: metroNIDAZOLE 500MG/100ML 100 ML IV SCH (22:57)
[2024-09-09] VITALS (8 sets, daily range): BP systolic 70–147; BP diastolic 57–85; PULSE 54–82; RESP 16–20; TEMP 97.6–98.5; O2SAT 94–98
[2024-09-09 06:51] LABS: Potassium 3.6 mmol/L (3.5-5.1); Sodium 144 mmol/L (136-145)
[2024-09-09 06:52] LABS: Anion Gap 7 (5-15); Carbon Dioxide 26 mmol/L (20-31)
[2024-09-09 06:55] LABS: Chloride 111 mmol/L (98-107)
[2024-09-09 06:58] LABS: BUN/Creatinine Ratio 8.2 (10.0-20.0); Blood Urea Nitrogen 8 mg/dL (9-23); Glucose 102 mg/dL (74-106)
[2024-09-09] MEDS: cefTRIAXone 1GM/50ML D5W 50 ML IV SCH (09:58)
[2024-09-09] MEDS: METOPROLOL SUCCINATE XL 50 MG TAB PO SCH (10:01)
[2024-09-09] MEDS: SODIUM CHLORIDE 0.9% 1,000 ML IV ONE (10:30)
[2024-09-09] MEDS: FLORASTOR (S. BOULARDII) 250 MG CAP PO SCH (14:58)
[2024-09-09] MEDS: ONDANSETRON HCL 4 MG/2 ML VIAL IV PRN (15:03)
--- NOTE | 2024-09-09 15:18 | DVHPNRES ---
Progress Note Date Seen: Sep 09, 2024 Resident Creating Document: SALVADOR SNIDER RESIDENT Medical Necessity Reason Pt with a Central, PICC or Fol: No Subjective Review of Systems This is a 49-year-old female with past medical history of irritable bowel syndrome, hypothyroidism, dyslipidemia, hypertension, depression, and recurrent perianal abscess came to the hospital due to diarrhea. Per patient, she was started on Augmentin 5 days back due to perianal area abscess, subsequently she developed watery diarrhea, and by taking Imodium did not help. Today, she had 6 bowel movements since morning. She also reports of mild abdominal pain. She denies fever, chest pain, shortness of breaths, recent sick contacts, unusual food intake or urinary symptoms. PMHx: irritable bowel syndrome, hypothyroidism, dyslipidemia, hypertension, depression, and recurrent perianal abscess PSHx: Hysterectomy Home medication: Metoprolol, levothyroxine, gemfibrozil, escitalopram, omeprazole, vitamin-D, Augmentin, amlodipine, fluticasone Allergic history: Codeine, doxycycline, erythromycin, garlic, lactulose intolerance, on your own, strawberry, sulfa antibiotic 09/08 - Patient seen and examined, reports feeling better, nausea resolved. Diet increased to full liquid. 09/09 - patient seen and examined, high-volume diarrhea more than 10 episodes per day. Patient advised to avoid sugary drinks, increased fiber intake, avoid lactose. C diff studies pending. IV NS 1 L. Florastor started Objective vital signs Vital Sign Date Time Temp Pulse Resp B/P (MAP) Pulse Ox O2 Delivery O2 Flow Rate FiO2 09/09/24 10:01 63 115/62 09/09/24 09:00 98.0 18 96 98.0 09/09/24 08:30 Room Air* 0 21 Total Intake and Output 09/08/24 09/08/24 09/09/24 15:00 23:00 07:00 Intake Total 325 ml 1000 ml 1670 ml Balance 325 ml 1000 ml 1670 ml medications Current Medications Medications Dose Ordered Sig/Annetta Route Start Time Stop Time Status Last Admin Dose Admin Acetaminophen 650 mg Q6HP PRN PO 09/07/24 19:30 Enoxaparin Sodium 40 mg DAILY SC 09/08/24 10:00 09/09/24 10:02 40 MG Vancomycin HCl 0 ml @ 0 mls/hr UD IV 09/07/24 19:30 Ondansetron HCl 4 mg Q4HPRN PRN IV 09/07/24 19:30 09/09/24 15:03 4 MG Levothyroxine Sodium 25 mcg QAM@0600 PO 09/08/24 06:00 09/09/24 05:45 25 MCG Vancomycin HCl 200 ml @ 200 mls/hr Q12H IV 09/07/24 22:00 09/09/24 10:03 200 MLS/HR Patient Own Medication 1 HS PO 09/07/24 22:13 09/08/24 21:13 1 Acetaminophen/ Hydrocodone Bitart 1 tab Q4HPRN PRN PO 09/08/24 09:00 UNV Morphine Sulfate 1 mg Q4HPRN PRN IV 09/08/24 09:00 UNV Acetaminophen/ Hydrocodone Bitart 1 tab Q4HPRN PRN PO 09/08/24 10:00 09/09/24 10:13 1 TAB Phenazopyridine HCl 100 mg TIDWM PO 09/08/24 18:00 09/09/24 14:58 100 MG Metoprolol Succinate 50 mg DAILY PO 09/09/24 10:00 09/09/24 10:01 50 MG Metronidazole 100 ml @ 100 mls/hr Q8HR IV 09/08/24 19:45 09/09/24 14:58 100 MLS/HR Atorvastatin Calcium 40 mg HS PO 09/08/24 22:00 09/08/24 22:57 40 MG Ceftriaxone Sodium 50 ml @ 100 mls/hr DAILY@09 IV 09/09/24 09:00 09/09/24 09:58 100 MLS/HR Saccharomyces Boulardii 250 mg DAILY PO 09/09/24 11:45 09/09/24 14:58 250 MG Examination Obese female patient lying in bed, in no acute distress General: Obese, afebrile, palor, mucosae are moist Cardiovascular: Regular S1 and S2. No murmurs, gallops or rubs. No JVD elevation. No pedal edema Respiratory: Normal B/L air entry on room air. Clear lung sounds on auscultation Abdomen: Soft, left lower quadrant tenderness nondistended, normoactive bowel sounds, no rebound tenderness, no organomegaly, no masses Genitourinary: Deferred MSK/skin: Mobilizes 4 limbs. Skin is dry and warm, right gluteal cleft has 2 cm tender mass, not draining Neurological: No motor, no sensitive deficits, normal speech. Pupils are isocoric and reactive. Psych/Mental Status: A/Ox3 laboratory and microbiology Laboratory Tests 09/09/24 05:52 09/07/24 19:45 Test 09/09/24 05:52 Range/Units Serum Glucose 102 74-106 mg/dL Microbiology Date/Time Source Procedure Growth Status 09/07/24 23:00 Stool Stool Culture - Preliminary Resulted 09/07/24 23:00 Stool Shiga Toxin I & II - Final Resulted 09/07/24 20:50 Blood Blood Culture - Preliminary NO GROWTH AFTER 24 HOURS OF INCUBATION. Resulted Labs and/or images reviewed: Labs reviewed by me, Image(s) reviewed by me Problem List/Assessment/Plan Problem List/Assessment/Plan ? Right gluteal cleft abscess -= recurrent Gluteal ultrasound shows 2.3 x 1 x 1.7 cm homogeneous collection with vascularity in the right buttock. Etiology is indeterminate by ultrasound IV vancomycin 09/07 Blood culture negative Acute gastroenteritis, likely infectious Rule out C difficult ? Irritable bowel syndrome flare-up IV metronidazole 09/07 and IV ceftriaxone IV fluids C diff studies pending Stool culture prelim negative Florastor daily Hypertension Metoprolol 50 XL succinate daily Hypothyroidism Levothyroxine 25 mcg daily Dyslipidemia Atorvastatin 40 mg daily Lovenox 40 mg sc daily Full liquid diet Ob to chair Plan discussed with patient in which all questions have been answered Goals of care discussed for more than 20 minutes, full code status Case discussed with Dr. Lu. C diff pending Plan discussed with: Patient My Orders My Orders Orders - SALVADOR SNIDER RESIDENT Procedure Category Date Status Time Right Lower Extremity US 09/08/24 Resulted Ultrasou 15:37 Metoprolol Xl PHA 09/09/24 In Process Succinate (Toprol Xl) 10:00 Metronidazole PHA 09/08/24 In Process 500mg/100ml (Flagyl 19:45 Atorvastatin (Lipitor) PHA 09/08/24 In Process 22:00 Stool Wbc LAB 09/08/24 Logged 15:43 Sodium Chloride 0.9% PHA 09/09/24 In Process 10:30 Full Liq Diet DIET 09/09/24 Transmitted Lunch Florastor (S. PHA 09/09/24 In Process Boulardii) (Florastor) 11:45 Date of Service: Sep 09, 2024 Billing Provider: FLORENCE WORMKAN MD Common Visit Codes: [id number] INP/OBS CARE(HIGH) SALVADOR SNIDER RESIDENT Sep 09, 2024 15:18 FLORENCE WORKMAN MD Sep 12, 2024 22:20
[2024-09-09] MEDS: DIPHENOXYLATE W/ATROPINE 2.5 MG TAB PO ONE (21:48)
[2024-09-10 01:00] VITALS: BP 130/87; PULSE 69; RESP 20; TEMP 97.7; O2SAT 97
[2024-09-10 05:00] VITALS: BP 98/61; PULSE 50; RESP 20; TEMP 97.2; O2SAT 90
[2024-09-10 07:56] LABS: Calcium 9.2 mg/dL (8.7-10.4); Potassium 3.6 mmol/L (3.5-5.1); Sodium 145 mmol/L (136-145)
[2024-09-10 07:57] LABS: Anion Gap 10 (5-15); Carbon Dioxide 25 mmol/L (20-31)
[2024-09-10 08:02] LABS: BUN/Creatinine Ratio 5.7 (10.0-20.0); Glucose 91 mg/dL (74-106)
[2024-09-10 08:14] LABS: Chloride 110 mmol/L (98-107)
[2024-09-10 08:15] LABS: Blood Urea Nitrogen 6 mg/dL (9-23)
[2024-09-10 08:30] VITALS: BP 121/82; PULSE 60; RESP 16; TEMP 97.2; O2SAT 95
[2024-09-10] MEDS: DIPHENOXYLATE W/ATROPINE 2.5 MG TAB PO PRN (11:13)
[2024-09-10] MEDS: PANTOPRAZOLE 40 MG/10 ML VIAL INJ IV ONE (11:30)
[2024-09-10] MEDS ORDERED: ATOR20TA50 PO (11:50)
[2024-09-10] MEDS ORDERED: PANT40T PO (11:50)
[2024-09-10] MEDS ORDERED: SACC250C PO (11:50)
[2024-09-10] MEDS ORDERED: LOPE2CAP16 PO ×2 (11:51→14:31)
--- NOTE | 2024-09-10 12:41 | DVHDSRES ---
Discharge Summary Date of Admission Resident Creating Document: SALVADOR SNIDER RESIDENT Sep 07, 2024 at 17:25 Date of Discharge: Sep 10, 2024 Admitting Diagnosis Diarrhea Labs/Diagnostic Data: Laboratory Results Test 09/10/24 05:58 09/09/24 10:15 09/08/24 12:34 09/08/24 09:46 Sodium Level 145 mmol/L (136-145) Potassium Level 3.6 mmol/L (3.5-5.1) Chloride Level 110 mmol/L (98-107) Carbon Dioxide Level 25 mmol/L (20-31) Anion Gap 10 (5-15) Blood Urea Nitrogen 6 mg/dL (9-23) Creatinine 1.05 mg/dL (0.550-1.02) Glomerular Filtration Rate Calc 65 mL/min (>90) BUN/Creatinine Ratio 5.7 (10.0-20.0) Serum Glucose 91 mg/dL (74-106) Calcium Level 9.2 mg/dL (8.7-10.4) Vancomycin Level Trough 10.9 ug/mL (5-10) Urine Color Light-yellow (Yellow) Urine Clarity Clear (Clear) Urine pH 5.5 (5.0-9.0) Urine Specific [place] 1.008 (1.001-1.035) Urine Protein Negative (Negative) Urine Ketones Negative (Negative) Urine Blood Negative /uL (Negative) Urine Nitrite Negative (Negative) Urine Bilirubin Negative (Negative) Urine Urobilinogen Normal mg/dL (Negative) Urine Leukocyte Esterase Negative /uL (Negative) Urine RBC 1 /hpf (0 - 4) Urine Microscopic WBC 2 /HPF (0-5) Urine Squamous Epithelial Cells Few /hpf (<5) Urine Bacteria Few /hpf (None Seen) Urine Glucose Normal mg/dL (Normal) Urine Opiates Screen Neg (NEGATIVE) Urine Fentanyl Screen Neg (NEGATIVE) Urine Barbiturates Screen Neg (NEGATIVE) Urine Phencyclidine Screen Neg (NEGATIVE) Urine Amphetamines Screen Neg (NEGATIVE) Urine Benzodiazepines Screen Neg (NEGATIVE) Urine Cocaine Screen Neg (NEGATIVE) Urine Cannabinoids Screen Pos (NEGATIVE) Prothrombin Time 11.0 sec (9.3-11.8) Prothrombin Time INR 1.04 (0.9-1.15) Activated Partial Thromboplast Time 29.6 SEC (24.5-34.5) Magnesium Level 1.7 mg/dL (1.6-2.6) Total Bilirubin 0.8 mg/dL (0.2-1.0) Aspartate Amino Transferase (AST) 34 U/L (<34) Alanine Aminotransferase (ALT) 42 U/L (7-40) Alkaline Phosphatase 65 U/L (46-116) Total Protein 6.4 g/dL (5.7-8.2) Albumin 4.5 g/dL (3.2-4.8) Vitamin B12 Level 354 pg/mL (211-911) Vitamin D 25-Hydroxy 48.1 ng/mL (30.0-100) Thyroid Stimulating Hormone (TSH) 5.84 uIU/mL (0.55-4.78) Free Thyroxine (T4) Calculated 0.97 ng/dL (0.89-1.76) Test 09/07/24 23:00 09/07/24 19:45 White Blood Count 7.5 10^3/uL (4.4-10.8) Red Blood Count 5.30 10^6/uL (4.0-5.20) Hemoglobin 14.9 g/dL (12.2-16.2) Hematocrit 42.5 % (36.0-46.0) Mean Corpuscular Volume 80.2 fL (80.0-100.0) Mean Corpuscular Hemoglobin 28.1 pg (28.0-32.0) Mean Corpuscular Hemoglobin Concent 35.0 g/dL (32.0-36.0) Red Cell Distribution Width 13.4 % (11.8-14.3) Platelet Count 260 10^3/uL (140-450) Mean Platelet Volume 7.6 fL (6.9-10.8) Neutrophils (%) (Auto) 52.9 % (37.0-80.0) Lymphocytes (%) (Auto) 38.3 % (10.0-50.0) Monocytes (%) (Auto) 6.5 % (0.0-12.0) Eosinophils (%) (Auto) 1.6 % (0.0-7.0) Basophils (%) (Auto) 0.7 % (0.0-2.0) Neutrophils # (Auto) 4.0 10 ^3/uL (1.6-8.6) Lymphocytes # (Auto) 2.9 10 ^3/uL (0.4-5.4) Monocytes # (Auto) 0.5 10 ^3/uL (0-1.3) Eosinophils # (Auto) 0.1 10 ^3/uL (0-0.8) Basophils # (Auto) 0.1 10 ^3/uL (0-0.2) Nucleated Red Blood Cells 0.3 % Hemoglobin A1c 6.0 % A1C (<5.7) Triglycerides Level 231 mg/dL (< 150) Cholesterol Level 186 mg/dL (< 200) LDL Cholesterol 126 mg/dL (< 100) HDL Cholesterol 32 mg/dL (40-59) Other Laboratory Tests 09/10/24 05:58 09/07/24 19:45 Brief Hx & Hospital Course: This is a 49-year-old female with past medical history of irritable bowel syndrome, hypothyroidism, dyslipidemia, hypertension, depression, and recurrent perianal abscess came to the hospital due to diarrhea. Per patient, she was started on Augmentin 5 days back due to perianal area abscess, subsequently she developed watery diarrhea, and by taking Imodium did not help. Today, she had 6 bowel movements since morning. She also reports of mild abdominal pain. She denies fever, chest pain, shortness of breaths, recent sick contacts, unusual food intake or urinary symptoms. PMHx: irritable bowel syndrome, hypothyroidism, dyslipidemia, hypertension, depression, and recurrent perianal abscess PSHx: Hysterectomy Home medication: Metoprolol, levothyroxine, gemfibrozil, escitalopram, omeprazole, vitamin-D, Augmentin, amlodipine, fluticasone Allergic history: Codeine, doxycycline, erythromycin, garlic, lactulose intolerance, on your own, strawberry, sulfa antibiotic During the hospitalization, Gluteal ultrasound shows 2.3 x 1 x 1.7 cm homogeneous collection with vascularity in the right buttock. Etiology is indeterminate by ultrasound. Given the intractable diarrhea and nausea and vomiting, patient was started on IV fluids, IV ceftriaxone and metronidazole, along with IV vancomycin given the history of MRSA, stool culture was ordered which came back negative , C diff studies were ordered, negative, blood culture is negative, given these findings, Lomotil was started given persistent diarrhea and diet was advanced, patient was counseled to avoid sugary drinks, milk and continue soft liquid diet until the diarrhea resolves. Oral rehydration with the electrolytes drinks was also recommended. 6/28-patient is being discharged to home with the recommendation to continue electrolyte drinks, plenty p.o. fluid intake , Imodium PRN, follow up with the discharge clinic and primary care physician within 7 days. Side effects advised. Patient to return to ER in case she experiences intractable nausea, vomiting and diarrhea or fever or chills. Patient agreed to discharge planning. All questions and concerns answered. Physical examination on the day of discharge: Obese female patient lying in bed, in no acute distress General: Obese, afebrile, palor, mucosae are moist Cardiovascular: Regular S1 and S2. No murmurs, gallops or rubs. No JVD elevation. No pedal edema Respiratory: Normal B/L air entry on room air. Clear lung sounds on auscultation Abdomen: Soft, left lower quadrant tenderness nondistended, normoactive bowel sounds, no rebound tenderness, no organomegaly, no masses Genitourinary: Deferred MSK/skin: Mobilizes 4 limbs. Skin is dry and warm, right gluteal cleft has 2 cm mass with decreased tenderness, not draining and no warmth/reddness Neurological: No motor, no sensitive deficits, normal speech. Pupils are isocoric and reactive. Psych/Mental Status: A/Ox3 Goals of care discussed with the patient for 20 minutes, full code Discussed with Dr. Liriano Operations or Procedures ORDERING PHYSICIAN: SALVADOR SNIDER RESIDENT PROCEDURE(s): RLEXT - RIGHT LOWER EXTREMITY ULTRASOU REASON: r/o abcess ORDER NUMBER(s): [id number], ACCESSION NUMBER(s): [id number] Exam: US RIGHT LOWER EXTREMITY ULTRASOU Date: 09/08/2024 03:50 PM Clinical History: r/o abcess Comparison: None Technique: Targeted sonographic evaluation of the soft tissues of the right buttock was obtained utilizing grayscale and color Doppler imaging. Findings: A 2.3 x 1 x 1.7 cm homogeneous collection with vascularity in the right buttock. Etiology is indeterminate by ultrasound IMPRESSION: 1. 2.3 x 1 x 1.7 cm solid homogeneous structure with vascularity in the right buttock. Etiology is indeterminate by ultrasound. ATED BY: VALENTE WIGGINS Jr., DO DICTATED DATE/TIME: 09/08/241623 SIGNED BY: VALENTE WIGGINS Jr., SIGNED DATE/TIME: 09/08/241623 CC: Condition at Discharge: Stable Final Diagnosis/Problems List Acute Gastroenteritis, likely infectious Likely Right gluteal cleft abscess - recurrent Ruled out C diff Likely irritable bowel syndrome flare-up Hypertension Hypothyroidism Dyslipidemia Obesity Discharge Disposition: Home Discharge Instruct/Medications Diet: Cardiac 2g Na,low cholest, See Comment Diet comment: Full liquid diet for 1 week, advanced as tolerated Avoid fruit juices, milk as they can exacerbate diarrhea Activity: Light activity Follow Up/Referral: Follow up with primary care physician within 7 days Follow up with the discharge clinic within 7 days Medications: Lomotil 2.5 mg twice daily as needed for diarrhea Pantoprazole 40 mg daily Resume home medications Discharge Statement: "Patient was advised to return to the ER or call 911 if any headaches, dizziness, shortness of breath, chest pain, abdominal pain, bleeding, fevers, or worsening of medical condition. Patient was counseled about treatment plan, medications, possible side effects, patientverbalized understanding. All questions were answered to the best of my ability. This discharge took greater then 30 minutes in planning, reviewing documentation, counseling the patient, and discussing with other team members." ASSESSMENT ASSESSMENT Assessment Acute Gastroenteritis, likely infectious Likely Right gluteal cleft abscess - recurrent Addendum Addendum Addendum I was physically present for the dominguez portions of the service provided to patient by THE RESIDENT. I have reviewed the documentation, discussed the case with resident and agree with the resident's documentation except as noted. Also the patient's clinical case was discussed with the patient's nurse. This medical document was created using an electronic medical record system with computerized dictation system. Although this document has been carefully reviewed, there might still be some phonetic and typographical errors. These areas are purely typographical due to imperfections of the software programs, and do not reflect any compromise in the patient's medical care. Late signature. Date of Service: Sep 10, 2024 Billing Provider: LIZA LIRIANO MD Common Visit Codes: 74716-KEA/[id number] DISCH DAY >30min Secondary Visit Codes: [id number] CARE PLAN 30 MINUTES (20 minutes) SALVADOR SNIDER RESIDENT Sep 10, 2024 12:41 LIZA LIRIANO MD Sep 12, 2024 06:42
[2024-09-10] MEDS ORDERED: LIDO5CRE3 EX (12:44)
[2024-09-10 14:37] VITALS: BP 121/82; PULSE 60; RESP 16; TEMP 98.7; O2SAT 96
[2024-09-11] MEDS ORDERED: PANTOPRAZOLE 40 MG/10 ML VIAL INJ IV SCH (10:00)
== END 2024-09-10 15:30 | disposition home or self-care (01) | DRG 392 ==
LOC: TELE-EAST 17:25 → EAST 09-08 09:21
PROVIDERS: ADMIT Student in an Organized Health Care Education/Training Program; ATTEND Student in an Organized Health Care Education/Training Program
DX: A09 Infectious gastroenteritis and colitis, unspecified (principal); K61.0 Anal abscess; L02.31 Cutaneous abscess of buttock; K58.0 Irritable bowel syndrome with diarrhea; E66.9 Obesity, unspecified; F32.A Depression, unspecified; Z68.38 Body mass index [BMI] 38.0-38.9, adult; E03.9 Hypothyroidism, unspecified; I10 Essential (primary) hypertension; E78.5 Hyperlipidemia, unspecified; Z91.011 Allergy to milk products; Z88.2 Allergy status to sulfonamides; Z91.018 Allergy to other foods
CPT/HCPCS: 36415; 76881; 80048; 80053; 80061; 80202; 80307; 81001; 82306; 82607; 83036; 83735; 83986; 84439; 84443; 85025; 85610; 85730; 87040; 87045; 87081; 87177; 87493; G0378; J2405; J2470; J3490

== ENCOUNTER 2024-10-18 09:01 | Outpatient (CLI) | payer BC ==
[~2024-10-18 09:01] MED LIST changes: +ATOR20TA50 PO; +CHOL500033 PO; +ESCI5TAB20 PO; +FLUT1SPR21; +GEMF-66 PO; +HYDR-3682 PO; +LIDO5CRE3 EX; +LOPE2CAP16 PO; +LORA-1126 PO; +LUMA42CA PO; +METO-289 PO; +PANT40T PO; +SACC250C PO; +TRIA37.586 PO
[2024-10-19 08:07] LABS: Immunoglobulin A 125 mg/dL (87-352)
== END 2024-10-18 17:00 | disposition home or self-care (01) ==
LOC: LAB 09:01
PROVIDERS: ATTEND Internal Medicine Gastroenterology
DX: R10.9 Unspecified abdominal pain (principal)
CPT/HCPCS: 82784; 83516; 86003; 86255

== ENCOUNTER 2024-10-21 11:43 | Day surgery (SDC) | payer BC ==
[2024-10-18 10:28] LABS: Alkaline Phosphatase 85 U/L (46-116); Anion Gap 11 (5-15); BUN/Creatinine Ratio 12.9 (10.0-20.0); Blood Urea Nitrogen 15 mg/dL (9-23); Calcium 9.7 mg/dL (8.7-10.4); Chloride 99 mmol/L (98-107); Potassium 3.7 mmol/L (3.5-5.1); Sodium 141 mmol/L (136-145); Total Protein 7.2 g/dL (5.7-8.2)
[2024-10-18 10:29] LABS: Bilirubin, Total 0.4 mg/dL (0.2-1.0)
[2024-10-18 10:36] LABS: Urine Protein, UAD Negative (Negative)
[2024-10-18 10:42] LABS: INR 0.98 (0.9-1.15); Partial Thromboplastin Time 28.8 SEC (24.5-34.5); Prothrombin Time 10.4 sec (9.3-11.8)
[2024-10-18 10:51] LABS: Alanine Aminotransferase 186 U/L (7-40); Albumin 5.1 g/dL (3.2-4.8); Carbon Dioxide 31 mmol/L (20-31); Glucose 116 mg/dL (74-106)
[2024-10-18 11:13] LABS: Hematocrit 43.5 % (36.0-46.0); Hemoglobin 15.2 g/dL (12.2-16.2); Mean Corpuscular Hemoglobin 28.7 pg (28.0-32.0); Mean Corpuscular Volume 82.1 fL (80.0-100.0); Nucleated Red Blood Cells % 0.6 %
[~2024-10-21] VITALS: Ht 165.1 cm; Wt 104.3 kg
[~2024-10-21 11:43] MED LIST changes: -ATOR20TA50 PO; -DILT-29 PO; -DIPH25CA66 PO; -HYDR-3682 PO; -LEVO25TA6 PO; -LIDO5CRE3 EX; -LOPE2CAP16 PO; -LORA-1126 PO; -PRED20TA2 PO; -SACC250C PO
[2024-10-21 12:27] VITALS: TEMP 98
[2024-10-21] MEDS ORDERED: KETAMINE 50mg/ML 1ml syringe ONE (13:10)
[2024-10-21] MEDS ORDERED: MIDAZOLAM HCL 2MG/2ML 2ml VIAL (1mg/ml) ONE (13:10)
[2024-10-21] MEDS ORDERED: fentaNYL CITRATE 100 MCG/2 ML VL ONE (13:10)
[2024-10-21] MEDS ORDERED: PROPOFOL 10 MG/ML 20 ML IV ONE (13:10)
[2024-10-21] MEDS ORDERED: SODIUM CHLORIDE LOCK 10 ML ONE (13:10)
[2024-10-21] MEDS ORDERED: ONDANSETRON HCL 4 MG/2 ML VIAL ONE (13:10)
[2024-10-21] MEDS ORDERED: HYDROmorphone HCL 2 MG/ML VL/or syr IV PRN ×2 (13:15)
[2024-10-21] MEDS ORDERED: MORPHINE SULFATE INJ 2 MG/ml SYRG IV PRN (13:15)
[2024-10-21] MEDS ORDERED: KETOROLAC TROMETH 30 MG/ML 1ML VIAL IV ONE (13:15)
[2024-10-21] MEDS ORDERED: MORPHINE SULFATE 4 MG/ML SYR/VIAL IV PRN (13:15)
[2024-10-21] MEDS ORDERED: LIDOCAINE VISCOUS 2% 15ML UD ONE (13:49)
[2024-10-21 14:17] VITALS: PULSE 80; RESP 12; O2SAT 99
[2024-10-21 14:27] VITALS: PULSE 71; RESP 13; O2SAT 98
[2024-10-21 14:47] VITALS: BP 147/89; PULSE 70; RESP 14; O2SAT 96
[2024-10-21] MEDS: METOCLOPRAMIDE HCL 5MG/ml INJ 2ml VIAL IV ONE (14:58)
--- NOTE | 2024-10-21 15:21 | DVHOP2 ---
Operative Report DATE OF OPERATION: 10/21/24 PROCEDURE: Upper Endoscopy with biopsy. PREOPERATIVE INDICATION: The patient is a 49 -year-old female undergoing endoscopy for epigastric pain and dyspepsia POSTOPERATIVE DIAGNOSES: 1. Mild gastritis and moderate duodenitis of the duodenal bulb and postbulbar area PROCEDURE PERFORMED BY: Ramírez Zimmer GI NURSE: Karrie SCOPE: Olympus videoendoscope. ASA CLASS: 2. PREOPERATIVE MEDICATIONS: Mac ole, Dr. Valencia PROCEDURE IN DETAIL: After obtaining an informed consent, the patient was placed on left lateral decubitus position. The patient was then sedated with the above medications. A bite block was placed between her teeth. The endoscope was then passed through the oropharynx, into the esophagus, and through the stomach and pylorus up to the second and third part of the duodenum. The endoscope was then withdrawn. The 2nd and 3rd part of the duodenum were normal. Duodenal bulb and postbulbar area showed moderate duodenitis with hyperemia erythema and superficial erosions The pre-pyloric area antrum and body showed mild gastritis. Duodenal and gastric biopsies obtained Which in the fundus and cardia were normal. The endoscope was then withdrawn into distal esophagus Patient had a slightly irregular squamocolumnar junction but no significant hiatal hernia or esophagitis The remaining distal and proximal esophagus and oropharynx were unremarkable The patient tolerated the procedure well without difficulty. COMPLICATIONS : None SPECIMENS: Duodenal biopsies Gastric biopsies DISPOSITION: D/C to home PLAN: 1. Await for biopsy result 2. Will place pt on Protonix 40 mg p.o. daily 3. DC aspirin NSAIDs smoking alcohol 4. Resume GI soft diet advance as tolerated 5. Proceed with colonoscopy RAMÍREZ ZIMMER MD Oct 21, 2024 15:21
--- NOTE | 2024-10-21 15:25 | DVHOP2 ---
Operative Report DATE OF OPERATION: 10/21/24 PROCEDURE: Colonoscopy with hot snare polypectomy. PREOPERATIVE INDICATION: The patient is a 49 -year-old female undergoing colonoscopy for surveillance with personal history of colon polyps POSTOPERATIVE DIAGNOSES: 1. There were 3-4 benign-appearing transverse colon polyps that were seen and removed via cold biopsy forceps and by snare polypectomy 2. There was a 1.5 cm mid ascending colon polyp that was seen and removed by hot snare polypectomy and the specimens were retrieved 3. There was a 3 mm benign-appearing sigmoid polyp that was seen and removed by hot snare polypectomy and the specimens were retrieved 4. Trace to 1+ internal hemorrhoids otherwise completely normal colonoscopy examination up to the cecum and terminal ileum PROCEDURE PERFORMED BY: Ramírez Zimmer M.D. SCOPE: Olympus videocolonoscope. ASA CLASS: 2. PREOPERATIVE MEDICATIONS: Dr. Annie Baltazar PROCEDURE IN DETAIL: After obtaining an informed consent, the patient was placed on left lateral decubitus position. She was then sedated with the above medications. A rectal examination was performed that was normal. The colonoscope was then passed through the anus into the rectosigmoid and through the descending, transverse, and ascending colon up to the cecum with visualization of the appendiceal orifice, base of the cecum and the ileocecal valve. The colonoscope was then withdrawn. The distal 5-10 cm of the terminal ileum were normal There was a 1.5 cm mid ascending colon polyp that was seen and removed by hot snare polypectomy In the transverse colon there were 3-4 benign-appearing transverse transverse colon polyps that were seen cold biopsy forceps In the sigmoid colon there was a 3 mm benign-appearing polyp that was seen and removed by hot snare polypectomy On retroflexion and straight on view the patient had trace to 1+ internal hemorrhoids. The patient tolerated the procedure well without difficulty. WITHDRAWAL TIME: 12 minutes QUALITY OF THE PREP: Weed Bowel Prep score: 9. COMPLICATIONS : None SPECIMENS: Transverse colon polyps Ascending colon polyp Sigmoid polyp DISPOSITION: Stable D/C to home PLAN: 1. Repeat colonoscopy base on biopsy result likely in three years 2. Resume GI soft diet advance as tolerated 3. Avoid aspirin NSAIDs smoking alcohol 4. Outpatient follow up with me in 4-6 weeks to review results and discuss further management RAMÍREZ ZIMMER MD Oct 21, 2024 15:25
== END 2024-10-21 15:05 | disposition home or self-care (01) ==
LOC: GI 11:43
PROVIDERS: ATTEND Internal Medicine Gastroenterology
DX: R10.9 Unspecified abdominal pain (principal); D12.3 Benign neoplasm of transverse colon; K63.5 Polyp of colon; K29.80 Duodenitis without bleeding; K29.50 Unspecified chronic gastritis without bleeding; K64.0 First degree hemorrhoids; E66.9 Obesity, unspecified; Z68.38 Body mass index [BMI] 38.0-38.9, adult; F17.210 Nicotine dependence, cigarettes, uncomplicated; Z88.1 Allergy status to other antibiotic agents; Z88.2 Allergy status to sulfonamides; Z88.8 Allergy status to other drugs, medicaments and biological substances; Z86.0100 Personal history of colon polyps, unspecified
CPT/HCPCS: 36415; 43239; 45380; 45385; 80053; 81001; 85025; 85610; 85730; 88305; 88342; J2250; J2405; J2704; J2765; J3010; J7030

== ENCOUNTER 2025-01-25 15:57 | Emergency (ER) | payer BC ==
[~2025-01-25] VITALS: Ht 165.1 cm; Wt 106.0 kg
--- NOTE | 2025-01-25 17:14 | ED.PDOC ---
History of Present Illness HPI Comments 49-year-old female presents to the ER with prior medical history of high lipids, hypertension, IBS, bipolar disorder: Surgical history of hysterectomy, tubal ligation, colonoscopy, endoscopy, left and right heart catheter in the chief complaint of abdominal pain. Patient reports on having left back cramping pain which radiates diffusely to the abdomen and down to the pelvic area. Patient states on having the pain began yesterday associated with nausea, and abdominal distention. Patient notes on having a bowel movement earlier today. Denies any other symptoms at this time. Denies chills, fever, /V/D, SOB, CP. No other associated symptoms, modifiers, recent injuries or sick contacts present at this time. Chief Complaint: Abdominal Pain Time Seen by MD: 17:00 Primary Care Provider: VIRGILIO Reviewed Notes: Nurses Notes, Medications, Allergies Allergies: Coded Allergies: Garlic (Verified Allergy, Severe, Diarrhea (powder type okay), 02/23/24) Lactose Intolerance (GI) (Verified Allergy, Severe, diarrhea , 02/23/24) Levofloxacin (Verified Allergy, Severe, 01/25/25) Onion (Verified Allergy, Severe, Diarrhea (Powder type is okay), 02/23/24) [place] (Verified Allergy, Severe, anaphalactic (tongue and lips swells) , 02/23/24) Doxycycline (Verified Allergy, Intermediate, 06/25/21) Erythromycin (Verified Allergy, Intermediate, 06/25/21) Sulfa Antibiotics (Verified Allergy, Mild, hives, 06/25/21) Codeine (Verified Adverse Reaction, Intermediate, 06/25/21) Home Meds Active Scripts Pantoprazole Sodium Sesquihydr (Pantoprazole Sodium) 40 Mg Tab, 40 MG PO DAILY for 30 Days, #30 TAB 0 Refills Prov:SALVADOR SNIDER RESIDENT 09/10/24 Reported Medications Hydrochlorothiazide W/Triamter (Triamterene/Hydrochloroth) 1 Cap Cap, 1 CAP PO, CAP 09/07/24 Escitalopram Oxalate (ESCITALOPRAM OXALATE) 5 Mg Tab, 5 MG PO, TAB 09/07/24 Gemfibrozil (Gemfibrozil) 600 Mg Tab, 600 MG PO BID for 30 Days 09/07/24 Fluticasone Propionate (Nasal) (Allergy Nasal [place] 24 Ho) 50 Mcg/Act Spr, 50 MCG NA, SPRAY 09/07/24 Cholecalciferol (Vitamin D-3) 5,000 Unit Cap, 50 MCG PO, CAP 09/07/24 Lumateperone Tosylate (Caplyta) 42 Mg Cap, 42 MG PO, CAP 09/07/24 Metoprolol Succinate (Metoprolol Succinate Er) 50 Mg Tab, 1 TAB PO BID, #30 TAB 5 Refills 09/07/24 Levothyroxine Sodium (SYNTHROID TABLET) 50 Mcg Tb, 1 TAB PO DAILY, #30 TAB 5 Refills 02/23/24 Omeprazole (Gnp Omeprazole) 20 Mg Tab, 1 TAB PO DAILY, #90 TAB 1 Refill 02/23/24 Information Source: Patient Mode of Arrival: Ambulatory Severity: Moderate Timing: Hours Duration: Since onset, Hours Prehospital treatment: None Past Medical History PAST MEDICAL HISTORY: High Lipids, HTN Past Medical History (Other): IBS, bipolar disorder Surgical History: Hysterectomy, Tubal Ligation Surgical History (Other): Colonoscopy, endoscopy, left and right heart catheter 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 Pertinent STEAM CLEANING MACHINE OPERATOR History Family History Family History: Reviewed,noncontributory to illness, Unknown Social History Smoker: Non-Smoker Alcohol: Denies ETOH Use Drugs: Denies Drug Use Lives In: Home Constitutional: denies: chills, diaphoresis, fatigue, fever, malaise, sweats, weakness, others EENTM: denies: blurred vision, double vision, ear bleeding, ear discharge, ear drainage, ear pain, ear ringing, eye pain, eye redness, hearing loss, mouth pain, mouth swelling, nasal discharge, nose bleeding, nose congestion, nose pain, photophobia, tearing, throat pain, throat swelling, voice changes, others Respiratory: denies: cough, hemoptysis, orthopnea, SOB at rest, shortness of breath, SOB with excertion, stridor, wheezing, others Cardiovascular: denies: chest pain, dizzy spells, diaphoresis, Dyspnea on exertion, edema, irregular heart beat, left arm pain, lightheadedness, palpitations, PND, syncope, others Gastrointestinal: reports: abdominal pain, nausea; denies: abdomen distended, blood streaked bowels, constipated, diarrhea, dysphagia, difficulty swallowing, hematemesis, melena, poor appetite, poor fluid intake, rectal bleeding, rectal pain, vomiting, others Genitourinary: denies: abnormal vagina bleeding, burning, dyspareunia, dysuria, flank pain, frequency, hematuria, incontinence, pain, , vagina discharge, urgency, others Neurological: denies: dizziness, fainting, headache, left sided numbness, left sided weakness, numbness, paresthesia, pre-existing deficit, right sided numbness, right sided weakness, seizure, speech problems, tingling, tremors, weakness, others Musculoskeletal: reports: back pain; denies: gout, joint pain, joint swelling, muscle pain, muscle stiffness, neck pain, others Integumetry: denies: bruises, change in color, change in hair/nails, dryness, laceration, lesions, lumps, rash, wounds, others Allergic/Immunocompromised: denies: Difficulty Healing, Frequent Infections, Hives, Itching, others Hematologic/Lymphatic: denies: anemia, blood clots, easy bleeding, easy bruising, swollen glands, others Endocrine: denies: excessive hunger, excessive sweating, excessive thirst, excessive urination, flushing, intolerance to cold, intolerance to heat, unexplained weight gain, unexplained weight loss, others Psychiatric: denies: anxiety, bipolar disorder, depression, hopeless, panic disorder, schizophrenia, sleepless, suicidal, others All Other Systems: Reviewed and Negative Physical Exam Exam Comments Positive CVA on left side, diffuse abdominal tenderness General Appearance: No Apparent Distress, Normal HEENT: Normal ENT Inspection, Pharynx Normal, TMs Normal Neck: Full Range of Motion, Non-Tender, Normal, Normal Inspection Respiratory: Chest Non-Tender, Lungs Clear, No Accessory Muscle Use, No Respiratory Distress, Normal Breath Sounds Cardiovascular: No Edema, No JVD, No Murmur, No Gallop, Normal Peripheral Pulses, Regular Rate/Rhythm Breast Exam: Deferred Gastrointestinal: No Organomegaly, Non Tender, No Pulsatile Mass, Normal Bowel Sounds, Soft Genitalia: Deferred Pelvic: Deferred Rectal: Deferred Extremities: No calf tenderness, Normal capillary refill, Normal inspection, Normal range of motion, Non-tender, No pedal edema Musculoskeletal : Apperance: Normal Neurologic: Alert, special education para professional II-XII nml as Tested, No Motor Deficits, Normal Affect, Normal Mood, No Sensory Deficits Cerebellar Function: Normal Reflexes: Normal Skin: Dry, Normal Color, Warm Lymphatic: No Adenopathy Was a procedure done? Was a procedure done?: No Differential Dx Considerations may include: Kidney stone, gastroenteritis, small-bowel obstruction, urinary tract infection, pyelonephritis X-Ray, Labs, Meds, VS Vital Signs Date Time Temp Pulse Resp B/P (MAP) Pulse Ox O2 Delivery O2 Flow Rate FiO2 01/25/25 15:58 97.5 102 18 155/109 97 97.5 Lab Test 01/25/25 17:16 01/25/25 16:15 Range/Units White Blood Count 10.8 4.4-10.8 10^3/uL Red Blood Count 5.51 H 4.0-5.20 10^6/uL Hemoglobin 15.9 12.2-16.2 g/dL Hematocrit 45.3 36.0-46.0 % Mean Corpuscular Volume 82.2 80.0-100.0 fL Mean Corpuscular Hemoglobin 28.9 28.0-32.0 pg Mean Corpuscular Hemoglobin Concent 35.2 32.0-36.0 g/dL Red Cell Distribution Width 14.1 11.8-14.3 % Platelet Count 321 140-450 10^3/uL Mean Platelet Volume 8.3 6.9-10.8 fL Neutrophils (%) (Auto) 57.7 37.0-80.0 % Lymphocytes (%) (Auto) 35.1 10.0-50.0 % Monocytes (%) (Auto) 5.8 0.0-12.0 % Eosinophils (%) (Auto) 1.0 0.0-7.0 % Basophils (%) (Auto) 0.4 0.0-2.0 % Neutrophils # (Auto) 6.3 1.6-8.6 10 ^3/uL Lymphocytes # (Auto) 3.8 0.4-5.4 10 ^3/uL Monocytes # (Auto) 0.6 0-1.3 10 ^3/uL Eosinophils # (Auto) 0.1 0-0.8 10 ^3/uL Basophils # (Auto) 0 0-0.2 10 ^3/uL Nucleated Red Blood Cells 0.9 % Sodium Level 140 136-145 mmol/L Potassium Level 3.8 3.5-5.1 mmol/L Chloride Level 98 98-107 mmol/L Carbon Dioxide Level 27 20-31 mmol/L Anion Gap 15 5-15 Blood Urea Nitrogen 24 H 9-23 mg/dL Creatinine 1.04 H 0.550-1.02 mg/dL Glomerular Filtration Rate Calc 66 >90 mL/min BUN/Creatinine Ratio 23.1 H 10.0-20.0 Serum Glucose 120 H 74-106 mg/dL Calcium Level 10.0 8.7-10.4 mg/dL Total Bilirubin 1.3 H 0.2-1.0 mg/dL Aspartate Amino Transferase (AST) 78 H 13-40 U/L Alanine Aminotransferase (ALT) 80 H 7-40 U/L Alkaline Phosphatase 77 46-116 U/L Total Protein 7.4 5.7-8.2 g/dL Albumin 5.0 H 3.2-4.8 g/dL Lipase 65 H 12-53 U/L Urine Color Light-yellow Yellow Urine Clarity Clear Clear Urine pH 6.0 5.0-9.0 Urine Specific [place] 1.021 1.001-1.035 Urine Protein Negative Negative Urine Ketones Negative Negative Urine Blood Negative Negative /uL Urine Nitrite Negative Negative Urine Bilirubin Negative Negative Urine Urobilinogen Normal Negative mg/dL Urine Leukocyte Esterase 1+ Negative /uL Urine RBC 1 0 - 4 /hpf Urine Microscopic WBC 7 H 0-5 /HPF Urine Squamous Epithelial Cells Few <5 /hpf Urine Bacteria Few H None Seen /hpf Urine Glucose Normal Normal mg/dL Current Medications Medications (Trade) Dose Ordered Sig/Annetta Route Start Time Stop Time Status Last Admin Ketorolac Tromethamine (Toradol Injection) 30 mg ONCE ONCE IM 01/25/25 17:00 01/25/25 17:07 DC 01/25/25 17:17 X-Ray, Labs, Meds, VS Comment Imaging was reviewed by this provider, there is no obvious pathological or acute disease process. Pending radiology review Labs were reviewed by this provider, no abnormalities Vital signs reviewed by this provider, clinically stable Time of 1ST Reevaluation: 17:30 Reevaluation 1ST: Unchanged Patient Education/Counseling: Diagnosis, Treatment, Prognosis Family Education/Counseling: No Family Present SEPSIS Sepsis Screen Date sepsis recognized/suspect: Jan 25, 2025 Time Sepsis recognized/suspect: 1601 Recent Procedure: No On Antibiotic Therapy: No Respiratory Rate >20: No Heart Rate >90: No Temp<36 C (96.8 F) or >38.3 C: No SBP <90 or MAP <65 mmHG: No New Acute Mental Status Change: No Is the patient on CPAP, BIPAP,: No Physician Orders Ct Ab Pel Wo Con-No Oral Or Iv (01/25/25 17:00) Vital Signs Date Time Temp Pulse Resp B/P (MAP) Pulse Ox O2 Delivery O2 Flow Rate FiO2 01/25/25 15:58 97.5 102 18 155/109 97 97.5 Laboratory Tests Test 01/25/25 17:16 White Blood Count 10.8 10^3/uL (4.4-10.8) Medications Medications Dose Ordered Sig/Annetta Route Start Time Stop Time Status Last Admin Dose Admin Ketorolac Tromethamine 30 mg ONCE ONCE IM 01/25/25 17:00 01/25/25 17:07 DC 01/25/25 17:17 Departure 1 Departure Time of Disposition: 19:25 Impression: Primary Impression: Non-specific colitis Disposition: HOME / SELF CARE / HOMELESS Condition: Fair e-Prescriptions Dicyclomine Hcl (BENTYL CAPSULE) 10 Mg Cp 1 CAP PO TID PRN, #30 CAP 11 Refills Prov: MEGHANN MARTINEZ 01/25/25 Discharged With: Self Critical Care Note Critical Care Time?: No Stability Stability form required: No Heart Score Heart Score: Heart Score Response (Comments) Value History N/A 0 EKG N/A 0 Age N/A 0 Risk Factors N/A 0 Troponin N/A 0 Total 0 I personally scribed for MEGHANN MARTINEZ ([email or web address]) on 01/25/25 at 17:14. Electronically submitted by Jeremiah Cheng ([employer]). I personally scribed for MEGHANN MARTINEZ ([email or web address]) on 01/25/25 at 17:20. Electronically submitted by Jeremiah Cheng ([employer]). MEGHANN MARTINZE Jan 25, 2025 17:14
[2025-01-25] MEDS: KETOROLAC TROMETH 30 MG/ML 1ML VIAL IM ONE (17:17)
[2025-01-25 18:10] LABS: Hematocrit 45.3 % (36.0-46.0); Hemoglobin 15.9 g/dL (12.2-16.2); Mean Corpuscular Hemoglobin 28.9 pg (28.0-32.0); Mean Corpuscular Volume 82.2 fL (80.0-100.0); Nucleated Red Blood Cells % 0.9 %
[2025-01-25 18:25] LABS: Alkaline Phosphatase 77 U/L (46-116); Anion Gap 15 (5-15); BUN/Creatinine Ratio 23.1 (10.0-20.0); Calcium 10.0 mg/dL (8.7-10.4); Carbon Dioxide 27 mmol/L (20-31); Chloride 98 mmol/L (98-107); Potassium 3.8 mmol/L (3.5-5.1); Sodium 140 mmol/L (136-145); Total Protein 7.4 g/dL (5.7-8.2)
--- NOTE | 2025-01-25 18:26 | DVH ---
Exam: CT CT AB PEL WO CON-NO ORAL OR IV History: flank pain Comparison Study: CT CT AB PEL WO CON-NO ORAL OR IV on DOS: 10/07/22 only TECHNIQUE: Multidetector CT of the abdomen and pelvis without IV contrast. Axial, coronal and sagittal multiplanar reformats were obtained from the axial data set by the technologist. Radiation Dose Information: CT Dose: CTDI volume is 27.68 mGy. Dose-length product is 1535.82 mGy*cm FINDINGS: The lung bases are clear. Partially visualized heart is unremarkable. Hepatomegaly with hepatic steatosis and areas of fatty sparing adjacent to the gallbladder. Mild splenomegaly. Gallbladder, pancreas and right adrenal gland are unremarkable. 0.8 cm left adrenal nodule measuring up to -8 Hounsfield units which may represent an adenoma. Kidneys, ureters and urinary bladder are unremarkable. Uterus is not definitely visualized. Question hysterectomy. Stomach is unremarkable. Small bowel loops unremarkable. Appendix is unremarkable. Sigmoid diverticulosis without diverticulitis. Small to moderate amount of fecal material within the colon. No evidence of intraperitoneal free air or free fluid. No evidence of aortic aneurysm. [id number] atherosclerotic calcification of the aorta and bilateral iliacs. No significant lymphadenopathy. Tiny fat containing umbilical hernia. The soft tissues unremarkable. Sclerotic focus over the left proximal femur left medial pubic bone which May represent small bone islands. IMPRESSION: No evidence of acute abdominopelvic abnormalities. The Hepatomegaly with Hepatic steatosis. 0.8 cm Suggested left adrenal adenoma.
[2025-01-25 18:30] LABS: Alanine Aminotransferase 80 U/L (7-40); Albumin 5.0 g/dL (3.2-4.8); Bilirubin, Total 1.3 mg/dL (0.2-1.0); Blood Urea Nitrogen 24 mg/dL (9-23); Glucose 120 mg/dL (74-106); Lipase 65 U/L (12-53)
[2025-01-25 19:04] LABS: Urine Protein, UAD Negative (Negative)
[2025-01-25] MEDS ORDERED: DICY10CA PO (19:26)
[2025-01-25 19:31] VITALS: BP 138/82; PULSE 98; RESP 20; TEMP 98.3; O2SAT 96
== END 2025-01-25 19:27 | disposition home or self-care (01) ==
LOC: EEVIPCON 15:57 → ER 15:57
DX: K52.9 Noninfective gastroenteritis and colitis, unspecified (principal); F31.9 Bipolar disorder, unspecified; I10 Essential (primary) hypertension; Z79.899 Other long term (current) drug therapy; Z88.1 Allergy status to other antibiotic agents; Z88.2 Allergy status to sulfonamides; Z88.5 Allergy status to narcotic agent; Z90.710 Acquired absence of both cervix and uterus
CPT/HCPCS: 36415; 74176; 80053; 81001; 83690; 85025; 96372; 99285; J1885

== ENCOUNTER 2025-01-27 06:18 | Outpatient (CLI) | payer BC ==
[~2025-01-27 06:18] MED LIST changes: +DICY10CA PO
[2025-01-27 07:47] LABS: Hematocrit 43.3 % (36.0-46.0); Hemoglobin 14.9 g/dL (12.2-16.2); Mean Corpuscular Hemoglobin 28.6 pg (28.0-32.0); Mean Corpuscular Volume 83.0 fL (80.0-100.0); Nucleated Red Blood Cells % 0.0 %
[2025-01-27 07:49] LABS: INR 0.93 (0.9-1.15); Prothrombin Time 9.9 sec (9.3-11.8)
[2025-01-27 08:03] LABS: Albumin 4.8 g/dL (3.2-4.8); Alkaline Phosphatase 79 U/L (46-116); Anion Gap 12 (5-15); BUN/Creatinine Ratio 16.9 (10.0-20.0); Blood Urea Nitrogen 20 mg/dL (9-23); Calcium 9.3 mg/dL (8.7-10.4); Carbon Dioxide 28 mmol/L (20-31); Chloride 101 mmol/L (98-107); Potassium 3.6 mmol/L (3.5-5.1); Sodium 141 mmol/L (136-145); Total Protein 7.3 g/dL (5.7-8.2)
[2025-01-27 08:04] LABS: Bilirubin, Total 0.9 mg/dL (0.2-1.0)
[2025-01-27 08:06] LABS: Alanine Aminotransferase 90 U/L (7-40); Glucose 173 mg/dL (74-106)
[2025-01-27 11:15] LABS: Hepatitis C Antibody Negative (Negative)
== END 2025-01-30 17:00 | disposition home or self-care (01) ==
LOC: LAB 06:18
PROVIDERS: ATTEND Internal Medicine Gastroenterology
DX: R19.4 Change in bowel habit (principal); Z79.899 Other long term (current) drug therapy
CPT/HCPCS: 36415; 80053; 82728; 85025; 85610; 86038; 86706; 86803